=== PATIENT | male | born 1960 | race Caucasian/White ===

== ENCOUNTER 2023-06-21 12:26 | Inpatient (IN) | payer OTHER ==
[2023-06-21] VITALS (23 sets, daily range): BP systolic 117–186; BP diastolic 74–114
[~2023-06-21] VITALS: Ht 177.8 cm; Wt 61.4 kg
[~2023-06-21 12:26] MED LIST: ALBU90OI INH; ALPR1 PO; AMLO5 PO; ATOR10 PO; Acetaminophen650 M1 PO; Aspir 8181 MG PO; B-1100 M1 PO; CARV6.25 PO; CATAPRES0.2 M1 PO; CITALOPRAM HBR10 MG PO; COLCHICINE0.6 MG PO; Celexa20 MG PO; FOLI1 PO; HYDACE5 PO; Keflex500 MG PO; LACT PO; LISI5 PO; LOPE2C PO; MOMENI; MOXI400; Norco 5-325 Ta1 EACH PO; OXYACE5T PO; PROM25 PO; PROP10 PO; RXHYDACE PO; SILSUL1TC TOP; TELM40; [UNRECOGNIZED DRUG - REMARK]; [UNRECOGNIZED DRUG - REMARK]
[2023-06-21] MEDS ORDERED: Midazolam HCL 1 MG/ML 5MLVIAL IV ONE (12:35)
[2023-06-21 12:40] LABS: Chloride (POC) 90 mmol/L (98-108); Creatinine (POC) 4.9 mg/dL (0.8-1.3); Glucose (ISTAT POC) 78 mg/dL (70-99); Hemoglobin (POC) 11.6 g/dL (13.5-17.5); Potassium (POC) 4.5 mmol/L (3.5-5.5); Sodium (POC) 126 mmol/L (135-148); Total CO2 (POC) 34 mmol/L (21-32)
[2023-06-21] MEDS ORDERED: propofoL 100 ML IV SCH ×2 (12:45→15:15)
[2023-06-21 12:50] LABS: BASOPHILS ABSOLUTE AUTO 0.02 K/mm3 (0.00-0.23); BASOPHILS PERCENT AUTO 0 % (0-2); EOSINOPHILS PERCENT AUTO 0 % (0-6); Hematocrit 30.5 % (37.0-53.0); Hemoglobin 10.7 g/dL (13.5-17.5); IMMATURE GRAN ABSOLUTE AUTO 0.09 K/mm3 (0.00-0.10); IMMATURE GRAN PERCENT AUTO 1 % (0-1); LYMPHOCYTES ABSOLUTE AUTO 0.61 K/mm3 (0.84-5.20); LYMPHOCYTES PERCENT AUTO 4 % (21-46); MONOCYTES ABSOLUTE AUTO 0.82 K/mm3 (0.16-1.47); MONOCYTES PERCENT AUTO 5 % (4-13); Mean Corpuscular HGB 32.7 pg (26.0-34.0); Mean Corpuscular HGB Conc 35.1 g/dL (31.5-36.5); Mean Corpuscular Volume 93 fL (80-100); Mean Platelet Volume 11.1 fL (9.1-12.4); NEUTROPHILS ABSOLUTE AUTO 15.57 K/mm3 (1.96-9.15); NEUTROPHILS PERCENT AUTO 91 % (41-73); Platelet Count 385 K/mm3 (150-400); RDW Coefficient Variation 13.2 % (11.7-14.2); RDW Standard Deviation 45.1 fL (35.1-46.3); Red Blood Cell Count 3.27 M/mm3 (4.30-5.90); White Blood Cell Count 17.11 K/mm3 (4.00-11.30)
[2023-06-21 13:22] LABS: Base Excess Venous 11.2 mmol/L; Bicarbonate Venous 33.1 mmol/L (24.0-30.0); PCO2 Venous 54.2 mmHg (38-42); pH Blood Venous 7.43 (7.34-7.37)
[2023-06-21 13:29] LABS: Ethanol (Alcohol), Blood, Med <3 mg/dL
[2023-06-21 13:44] LABS: Alanine Aminotransfer (ALT/SGP 29 U/L (12-78); Albumin, Blood 2.8 g/dL (3.4-5.0); Albumin/Globulin Ratio 0.6 (0.8-1.8); Alk Phos 113 U/L (50-136); Anion Gap 12 mmol/L (3-11); Aspartate Aminotrans (AST/SGOT 48 U/L (12-37); Bilirubin, Total 1.3 mg/dL (0.1-1.0); Blood Urea Nitrogen 47 mg/dL (8-24); Bun/Creatinine Ratio 11.5 (12.0-20.0); CO2, Blood 32 mmol/L (21-32); Calcium, Blood 17.2 mg/dL (8.5-10.1); Chloride, Blood 91 mmol/L (98-108); Creatinine, Blood 4.07 mg/dL (0.60-1.20); Globulin, Blood 4.6 g/dL (2.2-4.0); Glomerular Filtration Rate 16 (60-); Glucose, Blood 84 mg/dL (70-99); Potassium, Blood 4.6 mmol/L (3.5-5.5); Sodium, Blood 130 mmol/L (136-145); Total Protein, Blood 7.4 g/dL (6.4-8.2)
[2023-06-21] MEDS ORDERED: NS 1,000 ML IV SCH ×3 (13:45→16:00)
[2023-06-21 14:25] LABS: U Amphetamine Screen Not Detected; U Barbituate Screen Not Detected; U Benzodiazapine Screen DETECTED; U Buprenorphine Screen Not Detected; U Cannabinoids Screen Not Detected; U Cocaine Screen Not Detected; U Methadone Screen Not Detected; U Methamphetamine Screen Not Detected; U Opiates Screen Not Detected; U Oxycodone Screen Not Detected; U Phencyclidine Screen Not Detected
[2023-06-21] MEDS ORDERED: FentaNYL Citrate 50 MCG/ML 2 ML Injection IV PRN (15:05)
[2023-06-21] MEDS ORDERED: Cetylpyridinium Chloride 1 EA MISC MT SCH (15:05)
[2023-06-21] MEDS ORDERED: Magnesium Sulf 2 GM/Water 50ML 50 ML IV STA (15:11)
[2023-06-21] MEDS ORDERED: Folic Acid 1 MG in NS 50 ML IV SCH (15:13)
[2023-06-21 15:24] LABS: Source, Urine Foley catheter
[2023-06-21 15:34] LABS: Appearance, Urine Cloudy (Clear); Bilirubin, Urine Neg (Neg); Blood, Urine 3+ (Neg); Color, Urine Yellow (P-Yellow); Glucose Qualitative, Urine Neg (Neg); Ketones, Urine 1+ (Neg); Leukocyte Esterase, Urine 1+ (Neg); Nitrite, Urine Neg (Neg); Protein, Urine 2+ (Neg); Urobilinogen, Urine NORM (Normal)
[2023-06-21 15:51] LABS: Hyaline Casts 0-2 /lpf (0-2)
[2023-06-21 15:52] LABS: Amorphous Mod (0-Heavy); Bacteria Few /hpf; Squamous Epithelial Cells Not Seen /hpf (Few)
[2023-06-21] MEDS ORDERED: Hydrogen Peroxide 1.5 % Solution MT SCH (16:00)
[2023-06-21] MEDS ORDERED: Heparin Sodium,Porcine 5,000 UNIT/0.5 ML SDV SC SCH (16:00)
[2023-06-21] MEDS ORDERED: Thiamine HCl 250 MG in NS 100 ML IV SCH (16:00)
[2023-06-21] MEDS ORDERED: LORazepam 2 MG/ML 1ML Injection ONE (16:29)
[2023-06-21] MEDS ORDERED: LORazepam 2 MG/ML 1ML Injection IV ONE (16:30)
[2023-06-21] MEDS ORDERED: NS 250 ML IV PRN (16:35)
[2023-06-21] MEDS ORDERED: NiCARdipine HCL 25 MG/10 ML (2.5MG/ML) IV ONE (16:50)
[2023-06-21] MEDS ORDERED: Calcitonin Salmon 200 IU/ML 2ML Vial SC SCH (17:00)
[2023-06-21] MEDS ORDERED: NiCARdipine HCL 50 MG in NS 250 ML IV SCH (17:00)
[2023-06-21] MEDS ORDERED: LORazepam 2 MG/ML 1ML Injection IV PRN ×3 (17:25)
--- NOTE | 2023-06-21 17:32 | NUR ---
ADMIT/SUMMARY PT ARRIVED TO ICU 7 VIA ER BED. PT ARRIVED INTUBATED AND SEDATED. PT TRANSFERED TO ICU BED WITH RT ASSISTANCE. PT VENT SETTINGS AC 16, TV 450, PEEP 5, FIO2 50%. PT WITH THICK ETT SECRETIONS WITH SUCTION. PT WITH STRONG COUGH AND GAG REFLEXES. PT INITALLY ARRIVED WITH SEVERE TREMORS THAT APPEARED SEIZURE LIKE, BUT WOULD INTERMITTENTLY BREAK. PT MED WITH ATIVAN PER EMAR. PT TREMORS SUBSIDED. PT WITHDRAWS EXTREMITIES TO NOXIOUS STIMULI, BUT DOES NOT FOLLOW ANY COMMANDS. PT SEDATED WITH PROPOFOL AT 50 MCG/KG/MIN AT THIS TIME. NS BOLUS INFUSING AND NS TKO. PT WITH SBP 170-190'S AT THIS TIME. NICARDIPINE GTT STARTED AT THIS TIME. OGT IN PLACE, CLAMPED. JARQUIN TEMP PROBE IN PLACE WITH YELLOW URINE OUTPUT NOTED. SBW RESTRAINTS IN PLACE. WILL CONTINUE TO MONITOR AND REPORT OFF TO ONCOMING RN.
[2023-06-21 19:49] LABS: Magnesium, Blood 1.6 mg/dL (1.6-2.4)
[2023-06-21 19:55] LABS: Albumin, Blood 2.5 g/dL (3.4-5.0); Albumin/Globulin Ratio 0.6 (0.8-1.8); Bun/Creatinine Ratio 12.5 (12.0-20.0); Calcium, Blood 15.4 mg/dL (8.5-10.1); Creatinine, Blood 3.92 mg/dL (0.60-1.20); Potassium, Blood 4.4 mmol/L (3.5-5.5); Total Protein, Blood 6.5 g/dL (6.4-8.2)
[2023-06-21] MEDS ORDERED: Mag Sulfate 1 GM/D5% 100ML 100 ML IV ONE (20:10)
[2023-06-21] MEDS ORDERED: Dextrose 50% 50 ML Syringe IV ONE (20:10)
[2023-06-21] MEDS ORDERED: D5W-1/2NS 1,000 ML IV SCH (20:10)
[2023-06-21] MEDS ORDERED: Dextrose 10% 250 ML IV ONE (20:20)
--- NOTE | 2023-06-21 20:47 | NUR ---
ASSUMED CARE PT INTUBATED AND SEDATED W/ NICARDIPINE AND PROPOFOL INFUSING PER EMAR. DR MAYORGA CALLED D/T CRITICAL CALCIUM VALUES + OTHER RENAL PANEL VALUES W/ ORDERS FOR D5 1/2NS @ 200MLS/HR, ADDITIONAL LABS, AND 1G MAGNESIUM IVPB. D10 250ML BOLUS INITIALLY ORDERED, BUT DC'D D/T NEXT HOUR CBG AT 92 PER MUKESH.
--- NOTE | 2023-06-21 22:32 | NUR ---
UPDATE DISCOVERED LAC PERIPHERAL IV WAS INFILTRATED (D5 1/2NS INFUSING). INFUSION WAS STOPPED, CONSULTED PHARMACY W/ RECOMMENDATION FOR WARM COMPRESS AND ELEVATION. SITE IS APPROX 2-3INCHES ACROSS W/ TEMPS UNCHANGED FROM SURROUNDING TISSUE. NICARDIPINE INFUSION ON SB D/T LIMITED ACCESS W/ SBP MAINTAINING <160. POWERGLADE CURRENTLY BEING PLACED AT TIME OF THIS NOTE.
[2023-06-21 23:23] LABS: Magnesium, Blood 2.2 mg/dL (1.6-2.4)
[2023-06-21 23:54] LABS: Base Excess Venous 6.9 mmol/L; Bicarbonate Venous 29.5 mmol/L (24.0-30.0); PCO2 Venous 45.2 mmHg (38-42); pH Blood Venous 7.45 (7.34-7.37)
[2023-06-21 23:59] LABS: Bun/Creatinine Ratio 12.3 (12.0-20.0); Creatinine, Blood 3.73 mg/dL (0.60-1.20); Phosphorus, Blood 2.9 mg/dL (2.5-4.9); Potassium, Blood 3.8 mmol/L (3.5-5.5)
[2023-06-22] VITALS (69 sets, daily range): BP systolic 107–177; BP diastolic 73–104
[2023-06-22 03:42] LABS: BASOPHILS ABSOLUTE AUTO 0.03 K/mm3 (0.00-0.23); BASOPHILS PERCENT AUTO 0 % (0-2); EOSINOPHILS ABSOLUTE AUTO 0.07 K/mm3 (0.00-0.68); EOSINOPHILS PERCENT AUTO 1 % (0-6); Hemoglobin 9.1 g/dL (13.5-17.5); IMMATURE GRAN ABSOLUTE AUTO 0.05 K/mm3 (0.00-0.10); IMMATURE GRAN PERCENT AUTO 0 % (0-1); LYMPHOCYTES ABSOLUTE AUTO 0.94 K/mm3 (0.84-5.20); LYMPHOCYTES PERCENT AUTO 8 % (21-46); MONOCYTES ABSOLUTE AUTO 0.96 K/mm3 (0.16-1.47); MONOCYTES PERCENT AUTO 8 % (4-13); Mean Corpuscular HGB 32.4 pg (26.0-34.0); Mean Corpuscular HGB Conc 33.7 g/dL (31.5-36.5); Mean Corpuscular Volume 96 fL (80-100); Mean Platelet Volume 11.4 fL (9.1-12.4); NEUTROPHILS ABSOLUTE AUTO 9.66 K/mm3 (1.96-9.15); NEUTROPHILS PERCENT AUTO 83 % (41-73); Platelet Count 308 K/mm3 (150-400); RDW Coefficient Variation 13.7 % (11.7-14.2); RDW Standard Deviation 48.4 fL (35.1-46.3); Red Blood Cell Count 2.81 M/mm3 (4.30-5.90); White Blood Cell Count 11.71 K/mm3 (4.00-11.30)
[2023-06-22 04:07] LABS: Magnesium, Blood 1.9 mg/dL (1.6-2.4)
[2023-06-22 04:28] LABS: Albumin, Blood 2.1 g/dL (3.4-5.0); Albumin/Globulin Ratio 0.6 (0.8-1.8); Bilirubin, Total 0.5 mg/dL (0.1-1.0); Bun/Creatinine Ratio 12.5 (12.0-20.0); Calcium, Blood 13.2 mg/dL (8.5-10.1); Creatinine, Blood 3.6 mg/dL (0.60-1.20); Globulin, Blood 3.6 g/dL (2.2-4.0); Phosphorus, Blood 2.3 mg/dL (2.5-4.9); Potassium, Blood 3.4 mmol/L (3.5-5.5); Total Protein, Blood 5.7 g/dL (6.4-8.2)
[2023-06-22 05:19] LABS: PO2 Arterial 78.3 mmHg (80-100); pH Blood Arterial 7.46 (7.35-7.45)
[2023-06-22] MEDS ORDERED: Pantoprazole Sodium 40 MG Injection IV SCH (06:00)
--- NOTE | 2023-06-22 06:26 | NUR ---
SHIFT SUMMARY PT REMAINS INTUBATED AND SEDATED. PROPOFOL AND NICARDIPINE CONTINUES TO INFUSE. SBP <160; RATE IN THE 80'S; SPO2 >92%. 12/450/5/30% VENT SETTINGS. AT START OF NIGHT PT ONLY WITHDREW FROM NOXIOUS STIMULI, BUT THIS AM PT OPENS EYES BRIEFLY UPON REQUEST, DOES NOT FOLLOW ANY OTHER COMMAND. JARQUIN CATHETER PATENT AND DRAINING TO GRAVITY. NO ACUTE EVENTS OVERNIGHT. DR MAYORGA AT BESIDE EARLIER IN THE NIGHT W/ NO NEW ORDERS.
[2023-06-22] MEDS ORDERED: Potassium Chl 20MEQ/Water100ML 100 ML IV STA (07:30)
--- NOTE | 2023-06-22 09:11 | NUR ---
ASSUMED CARE BEDSIDE REPORT FROM SYLWIA WILLOUGHBY AT 0700. PT INTUBATED AND SEDATED. VENT SETTINGS AC/VC 12/450/5/30%. LUNGS CLEAR, DIM IN BASES. OCCASIONAL COUGH. MODERATE, THICK SECRETIONS FROM ETT, MODERATE ORAL SECRETIONS. PROPOFOL GTT FOR SEDATION, RASS -4. PT GRIMACES c PAINFUL STIMULI, DOES NOT WITHDRAW EXT TO PAIN. DOES NOT FOLLOW COMMANDS. +COUGH/GAG, NO SWALLOW REFLEX. SR, RATE 70'S. NICARDIPINE PLACED ON STANDBY, GOAL SBP <160. D5 1/2 NS CONTINUES. ABD ROUND, SOFT, NON TENDER. BT X 4. OGT CLAMPED. JARQUIN PATENT, DRAINING CLEAR YELLOW URINE TO GRAVITY. WILL CONTINUE PLAN OF CARE.
[2023-06-22 13:03] LABS: BASOPHILS ABSOLUTE AUTO 0.02 K/mm3 (0.00-0.23); BASOPHILS PERCENT AUTO 0 % (0-2); EOSINOPHILS ABSOLUTE AUTO 0.08 K/mm3 (0.00-0.68); EOSINOPHILS PERCENT AUTO 1 % (0-6); Hematocrit 26.2 % (37.0-53.0); Hemoglobin 9.1 g/dL (13.5-17.5); IMMATURE GRAN ABSOLUTE AUTO 0.07 K/mm3 (0.00-0.10); IMMATURE GRAN PERCENT AUTO 1 % (0-1); LYMPHOCYTES PERCENT AUTO 9 % (21-46); MONOCYTES ABSOLUTE AUTO 0.92 K/mm3 (0.16-1.47); MONOCYTES PERCENT AUTO 8 % (4-13); Mean Corpuscular HGB 33.6 pg (26.0-34.0); Mean Corpuscular HGB Conc 34.7 g/dL (31.5-36.5); Mean Corpuscular Volume 97 fL (80-100); Mean Platelet Volume 11.3 fL (9.1-12.4); NEUTROPHILS ABSOLUTE AUTO 9.49 K/mm3 (1.96-9.15); NEUTROPHILS PERCENT AUTO 82 % (41-73); Platelet Count 311 K/mm3 (150-400); RDW Coefficient Variation 14.2 % (11.7-14.2); RDW Standard Deviation 49.6 fL (35.1-46.3); Red Blood Cell Count 2.71 M/mm3 (4.30-5.90); White Blood Cell Count 11.58 K/mm3 (4.00-11.30)
[2023-06-22 13:58] LABS: Percent Saturation 8.5 % (20.0-50.0)
--- NOTE | 2023-06-22 17:57 | NUR ---
SHIFT SUMMARY PT REMAINS INTUBATED AND SEDATED. VENT SETTINGS AC/VC 12/450/5/30%. LUNGS CLEAR. MODERATE AMOUNT OF THICK YELLOW SECRETIONS FROM ETT, LARGE AMOUNT OF CLEAR ORAL SECRETIONS. PROPOFOL FOR SEDATION, RASS -4. CPOT 0. PT OPENS EYES TO VERBAL STIMULI, DOES NOT FOLLOW COMMANDS OR WITHDRAW EXT TO PAIN. +COUGH/GAG/SWALLOW. SR, RATE 70-80'S. NICARDIPINE REMAINS OFF, SBP RANGE FROM 120-170'S. OGT CLAMPED. D5 1/2 NS INFUSING AT 200 ML/HR. JARQUIN PATENT, DRAINED 2500 ML CLEAR YELLOW URINE. CALLED AND UPDATED. WILL CONTINUE PLAN OF CARE UNTIL REPORT TO ONCOMING NURSE.
--- NOTE | 2023-06-22 20:26 | NUR ---
ASSUMED CARE OF PT AT 1900. REPORT RECEIVED AT BEDSIDE. PT PRESENTS IN BED. INTUBATED. AC 12, Tv 450, FIO2 30 PERCENT, PEEP 5. PT'S BLOOD PRESSURES ELEVATED, AND PT VERY RESTLESS. INCREASED PROPOFOL TO 25 MCG'S/KG/MIN FROM 20. 2 MG ATIVAN ADMINISTERED FOR ADJUNCT. HAVE SUCTIONED PT FOR LARGE AMOUNT OF LIGHT YELLOW SECRETIONS. WILL REVIEW CHART AND PLAN OF CARE.
[2023-06-22] MEDS ORDERED: Potassium Phos/Sodium Phos 250 MG PACK PO SCH (21:00)
[2023-06-23] VITALS (66 sets, daily range): BP systolic 112–190; BP diastolic 75–144
--- NOTE | 2023-06-23 03:27 | NUR ---
PT HAS FULL BEDBATH DONE. TOLERATES THIS FAIR. HAVE BEEN ABLE TO SUCTION COPIOUS AMOUNTS OF LIGHT YELLOW SECRETIONS FROM ETT. BLOOD PRESSURES HAVE RANGED FROM 150'S SYSTOLIC TO 170'S. WILL CONTINUE TO MONITOR PT.
[2023-06-23 04:12] LABS: BASOPHILS ABSOLUTE AUTO 0.04 K/mm3 (0.00-0.23); BASOPHILS PERCENT AUTO 0 % (0-2); EOSINOPHILS ABSOLUTE AUTO 0.19 K/mm3 (0.00-0.68); EOSINOPHILS PERCENT AUTO 2 % (0-6); Hematocrit 25.6 % (37.0-53.0); Hemoglobin 8.6 g/dL (13.5-17.5); IMMATURE GRAN ABSOLUTE AUTO 0.06 K/mm3 (0.00-0.10); IMMATURE GRAN PERCENT AUTO 1 % (0-1); LYMPHOCYTES ABSOLUTE AUTO 1.17 K/mm3 (0.84-5.20); LYMPHOCYTES PERCENT AUTO 11 % (21-46); MONOCYTES ABSOLUTE AUTO 0.84 K/mm3 (0.16-1.47); MONOCYTES PERCENT AUTO 8 % (4-13); Mean Corpuscular HGB 33.3 pg (26.0-34.0); Mean Corpuscular HGB Conc 33.6 g/dL (31.5-36.5); Mean Corpuscular Volume 99 fL (80-100); Mean Platelet Volume 11.4 fL (9.1-12.4); NEUTROPHILS PERCENT AUTO 78 % (41-73); Platelet Count 278 K/mm3 (150-400); RDW Coefficient Variation 14.3 % (11.7-14.2); RDW Standard Deviation 51.6 fL (35.1-46.3); Red Blood Cell Count 2.58 M/mm3 (4.30-5.90)
[2023-06-23] MEDS ORDERED: HydrALAZINE HCl 20 MG / ML 1ML Vial IV PRN (04:40)
[2023-06-23 05:31] LABS: Albumin, Blood 1.9 g/dL (3.4-5.0); Albumin/Globulin Ratio 0.5 (0.8-1.8); Bilirubin, Total 0.2 mg/dL (0.1-1.0); Bun/Creatinine Ratio 10.7 (12.0-20.0); Creatinine, Blood 2.72 mg/dL (0.60-1.20); Globulin, Blood 3.8 g/dL (2.2-4.0); Potassium, Blood 3.3 mmol/L (3.5-5.5); Total Protein, Blood 5.7 g/dL (6.4-8.2)
[2023-06-23] MEDS ORDERED: Potassium Chloride 40 MEQ in NS 250 ML IV STA (06:20)
--- NOTE | 2023-06-23 06:38 | NUR ---
CALL MADE TO DR CASE WHEREAS ORDER RECEIVED FOR HYDRALAZINE. THIS HAS BEEN ADMINISTERED. LAST BP WAS DONE JUST POST SUCTIONING. WILL AWAIT NEXT BLOOD PRESSURE TO ASSESS AFFECTIVENESS. PT HAS BEEN MEDICATED SEVERAL TIMES WITH ATIVAN FOR INCREASED RESTLESSNESS. WILL CONTINUE TO MONITOR PT, AND WILL REPORT OFF TO ONCOMING RN.
[2023-06-23] MEDS ORDERED: ChlordiazePOXIDE 25 MG Cap PT PRN (08:55)
[2023-06-23] MEDS ORDERED: Carvedilol 6.25 MG Tab PT SCH (09:00)
[2023-06-23] MEDS ORDERED: AmLODIPine Besylate 5 MG Tab PT SCH (09:00)
[2023-06-23] MEDS ORDERED: ChlordiazePOXIDE 25 MG Cap PO SCH (12:00)
[2023-06-23] MEDS ORDERED: Thiamine HCl 100 MG Tab PT SCH (14:00)
[2023-06-23] MEDS ORDERED: Magnesium Hydroxide Conc 10 ML UDC PT PRN (15:55)
[2023-06-23] MEDS ORDERED: Docusate Sodium 100 MG UDC PT PRN (15:55)
[2023-06-23] MEDS ORDERED: Bisacodyl 10 MG Supp PR PRN (15:55)
[2023-06-23] MEDS ORDERED: D5W-1/2NS 1,000 ML IV SCH (17:30)
--- NOTE | 2023-06-23 18:44 | NUR ---
SHIFT SUMMARY. PT HAS BEEN SEDATED AND INTUBATED T/O DAY. VENT SETTINGS HAVE BEEN 12/450/5/30% AC/VC W/ PT MAINTAINING SPO2 >96%. PT COUGHS WHEN REPOSITIONED AND WITHDRAWAL SYMPTOMS WORSEN. COUGH IS PRODUCTIVE W/ GREEN, YELLOW, AND WHITE SPUTUM. LUNG SOUNDS CTA BUT DIMINISHED IN BASES. PT IS NOT ORIENTED, BUT WAKES TO VERBAL STIMULI. PT WAS ONLY ABLE TO FOLLOW COMMANDS AND SQUEEZE HANDS TWICE AFTER 1200. HE NODDED AND SHOOK HEAD IN RESPONSE TO QUESTIONS. HE WAS UNABLE TO MOVE FEET. PUPILS ARE SLUGGISH AND 2MM. WITHDRAWAL WAS WELL MANAGED WITH ATIVAN AND LIBRIUM. PROPOFOL WAS STOPPED FROM 30MCG/KG/HR FOR INITIAL ATTEMPT AT SBT, BUT QUICKLY RESTARTED TO 20MCG/KG/HR AFTER PT RASS SCORE INCREASED TO +2, STARTED BUCKING THE VENT, WAS DIAPHORETIC AND VERY DISTRESSED. GI SOUNDS HAVE BEEN HYPERACTIVE. NO BM DURING SHIFT. TF STARTED AT 30ML/HR AT GOAL WITH 30ML FLUSH Q4 HR. TEMP JARQUIN PATIENT AND DRAINING TO GRAVITY W/ UROMETER. D5 W 1/2 NS RUNNING AT 100ML/HR. PT EXPERIENCING DROP FOOD IN L-FOOT. FEET BRACED BILATERALLY AND PT REPOSITIONED FOR COMFORT. HOB ELEVATED TO 30'. PT RESTING COMFORTABLY.
--- NOTE | 2023-06-23 19:00 | NUR ---
ASSUMED CARE ASSUMED CARE OF PATIENT. REMAINS INTUBATED- AC/VC 12/450/5/30%. SEDATED WITH PROPOFOL AT 20MCG/KG/MIN. OPENS EYES TO STIMULI. FOLLOWS SIMPLE COMMANDS TO SQUEEZE HANDS AND WIGGLE TOES. BILATERAL SOFT WRIST RESTRAINTS IN PLACE TO PREVENT SELF-EXTUBATION. MONITOR SHOWS NSR, RATE 80s. BP STABLE. OG WITH PIVOT 1.5 AT GOAL RATE OF 30MLS/HR. JARQUIN PATENT AND DRAINING TO GRAVITY. D5 1/2 NS INFUSING AT 100MLS/HR PER ORDER. SEE SHIFT ASSESSMENT FOR FULL ASSESSMEMT.
[2023-06-24] VITALS (47 sets, daily range): BP systolic 96–151; BP diastolic 66–96
[2023-06-24 04:33] LABS: BASOPHILS ABSOLUTE AUTO 0.05 K/mm3 (0.00-0.23); BASOPHILS PERCENT AUTO 1 % (0-2); EOSINOPHILS ABSOLUTE AUTO 0.38 K/mm3 (0.00-0.68); EOSINOPHILS PERCENT AUTO 5 % (0-6); Hematocrit 24.3 % (37.0-53.0); Hemoglobin 8.1 g/dL (13.5-17.5); IMMATURE GRAN ABSOLUTE AUTO 0.05 K/mm3 (0.00-0.10); IMMATURE GRAN PERCENT AUTO 1 % (0-1); LYMPHOCYTES ABSOLUTE AUTO 1.37 K/mm3 (0.84-5.20); LYMPHOCYTES PERCENT AUTO 17 % (21-46); MONOCYTES ABSOLUTE AUTO 0.85 K/mm3 (0.16-1.47); MONOCYTES PERCENT AUTO 11 % (4-13); Mean Corpuscular HGB 33.2 pg (26.0-34.0); Mean Corpuscular HGB Conc 33.3 g/dL (31.5-36.5); Mean Corpuscular Volume 100 fL (80-100); Mean Platelet Volume 11.5 fL (9.1-12.4); NEUTROPHILS ABSOLUTE AUTO 5.42 K/mm3 (1.96-9.15); NEUTROPHILS PERCENT AUTO 67 % (41-73); Platelet Count 270 K/mm3 (150-400); RDW Coefficient Variation 14.4 % (11.7-14.2); RDW Standard Deviation 52.2 fL (35.1-46.3); Red Blood Cell Count 2.44 M/mm3 (4.30-5.90); White Blood Cell Count 8.12 K/mm3 (4.00-11.30)
[2023-06-24 05:04] LABS: Albumin, Blood 1.8 g/dL (3.4-5.0); Albumin/Globulin Ratio 0.5 (0.8-1.8); Bilirubin, Total 0.2 mg/dL (0.1-1.0); Bun/Creatinine Ratio 10.5 (12.0-20.0); Calcium, Blood 9.6 mg/dL (8.5-10.1); Globulin, Blood 3.8 g/dL (2.2-4.0); Magnesium, Blood 0.9 mg/dL (1.6-2.4); Phosphorus, Blood 2.4 mg/dL (2.5-4.9); Potassium, Blood 3.5 mmol/L (3.5-5.5); Total Protein, Blood 5.6 g/dL (6.4-8.2)
[2023-06-24] MEDS ORDERED: Mag Sulfate 1 GM/D5% 100ML 100 ML IV ONE (06:00)
[2023-06-24] MEDS ORDERED: Lansoprazole 15 MG TAB.RAP.DR PT SCH (06:00)
[2023-06-24] MEDS ORDERED: Potassium Phosphate Dibasic 20 MM in Dextrose 5% 500 ML IV ONE (06:10)
[2023-06-24] MEDS ORDERED: Magnesium Citrate 300 ML BTL PO ONE (06:10)
--- NOTE | 2023-06-24 06:18 | NUR ---
SHIFT SUMMARY NO ACUTE CHANGES DURING SHIFT. REMAINS INTUBATED- AC/VC 12/450/5/30%. SEDATED WITH PROPOFOL BETWEEN 20-30MCG/KG/MIN. NOW INFUSING AT 30MCG/KG/MIN. MEDICATED WITH ATIVAN 2MG IV X 2 DOSES SEDATION ADJUNCT. LIBRIUM 25MG GIVEN Q6H PER ORDER. HR 70s-80s, NSR. BP STABLE- SBP OCCASIONALLY 150s. TMAX 99.3F. OG WITH PIVOT 1.5 AT GOAL RATE OF 30MLs/HR. 30ML H20 FLUSH Q4H. PASSING FLATUS- NO BM. JARQUIN PATENT AND DRAINING TO GRAVITY. D5 1/2 NS INFUSING AT 100MLs/HR. WILL REPORT TO ONCOMING RN WHEN AVAILABLE.
[2023-06-24] MEDS ORDERED: Mag Sulfate 1 GM/D5% 100ML 100 ML IV STA (07:17)
[2023-06-24 08:01] LABS: VITAMIN D,1,25-DIHYDROXY 11.1 pg/mL (19.9-79.3)
[2023-06-24] MEDS ORDERED: Folic Acid 1 MG TAB PT SCH (09:00)
[2023-06-24] MEDS ORDERED: Multivitamins-Minerals Liquid 15 ML Oral Syringe PT SCH (09:00)
[2023-06-24] MEDS ORDERED: Magnesium Sulf 2 GM/Water 50ML 50 ML IV ONE ×2 (10:55→15:15)
--- NOTE | 2023-06-24 17:45 | NUR ---
SHIFT SUMMARY NO ACUTE CHANGES THIS SHIFT. PT REMAINS INTUBATED AND SEDATED. VENT SETTINGS REMAIN AC 12, TV 450, PEEP 5, FIO2 30%. PT WITH THICK, YUNG ETT SECRETIONS THIS SHIFT. ORAL SECRETIONS HAVE DECREASED THROUGHOUT THE SHIFT. PT LIGHTLY SEDATED WITH PROPOFOL AT 30 MCG/KG/MIN. PT IS ABLE TO OPEN EYES SPONTANEOUSLY AND SQUEEZE HANDS UPON COMMAND. PT WITH PERIODS OF RESTLESSNESS AND TREMORS WITH MOVEMENT. PT MED WITH ATIVAN PER EMAR. OGT IN PLACE WITH TF INFUSING AT GOAL RATE. PG TO ROSARIO C/D/I. NS INFUSING TKO. JARQUIN TEMP PROBE REMAINS IN PLACE WITH CLEAR YELLOW URINE OUTPUT NOTED. SBW RESTRAINTS IN PLACE. VITAL SIGNS STABLE. WILL CONTINUE TO MONITOR AND REPORT OFF TO ONCOMING RN.
--- NOTE | 2023-06-24 19:00 | NUR ---
ASSUMED CARE ASSUMED CARE OF PATIENT. REMAINS INTUBATED- AC/VC 12/450/5/30%. SEDATED WITH PROPOFOL AT 30MCG/KG/MIN. OPENS EYES TO STIMULI. FOLLOWS SIMPLE COMMANDS TO SQUEEZE HANDS AND WIGGLE TOES. BILATERAL SOFT WRIST RESTRAINTS IN PLACE TO PREVENT SELF-EXTUBATION. MONITOR SHOWS NSR, RATE 80s. BP STABLE. OG WITH PIVOT 1.5 AT GOAL RATE OF 30MLS/HR. JARQUIN PATENT AND DRAINING TO GRAVITY. SEE SHIFT ASSESSMENT FOR FULL ASSESSMEMT.
[2023-06-25] VITALS (32 sets, daily range): BP systolic 98–173; BP diastolic 70–124
[2023-06-25 04:21] LABS: BASOPHILS ABSOLUTE AUTO 0.05 K/mm3 (0.00-0.23); BASOPHILS PERCENT AUTO 1 % (0-2); EOSINOPHILS ABSOLUTE AUTO 0.59 K/mm3 (0.00-0.68); EOSINOPHILS PERCENT AUTO 6 % (0-6); Hematocrit 25.4 % (37.0-53.0); Hemoglobin 8.5 g/dL (13.5-17.5); IMMATURE GRAN ABSOLUTE AUTO 0.05 K/mm3 (0.00-0.10); IMMATURE GRAN PERCENT AUTO 1 % (0-1); LYMPHOCYTES ABSOLUTE AUTO 1.58 K/mm3 (0.84-5.20); LYMPHOCYTES PERCENT AUTO 17 % (21-46); MONOCYTES ABSOLUTE AUTO 0.97 K/mm3 (0.16-1.47); MONOCYTES PERCENT AUTO 11 % (4-13); Mean Corpuscular HGB 33.1 pg (26.0-34.0); Mean Corpuscular HGB Conc 33.5 g/dL (31.5-36.5); Mean Corpuscular Volume 99 fL (80-100); NEUTROPHILS ABSOLUTE AUTO 6.04 K/mm3 (1.96-9.15); NEUTROPHILS PERCENT AUTO 65 % (41-73); Platelet Count 287 K/mm3 (150-400); RDW Coefficient Variation 14.6 % (11.7-14.2); RDW Standard Deviation 53.1 fL (35.1-46.3); Red Blood Cell Count 2.57 M/mm3 (4.30-5.90); White Blood Cell Count 9.28 K/mm3 (4.00-11.30)
[2023-06-25 04:38] LABS: Albumin, Blood 1.9 g/dL (3.4-5.0); Albumin/Globulin Ratio 0.5 (0.8-1.8); Bilirubin, Total 0.2 mg/dL (0.1-1.0); Bun/Creatinine Ratio 13.9 (12.0-20.0); Calcium, Blood 9.5 mg/dL (8.5-10.1); Creatinine, Blood 1.73 mg/dL (0.60-1.20); Magnesium, Blood 1.8 mg/dL (1.6-2.4); Phosphorus, Blood 2.4 mg/dL (2.5-4.9); Total Protein, Blood 5.9 g/dL (6.4-8.2)
--- NOTE | 2023-06-25 05:55 | NUR ---
SHIFT SUMMARY NO ACUTE CHANGES DURING SHIFT. REMAINS INTUBATED- AC/VC 12/450/5/30%. SEDATED WITH PROPOFOL BETWEEN 30-40MCG/KG/MIN. NOW INFUSING AT 30MCG/KG/MIN. MEDICATED WITH ATIVAN 2MG IV X 2 DOSES SEDATION ADJUNCT. BILATERAL SOFT WRIST RESTRAINTS IN PLACE TO PREVENT SELF-EXTUBATION. FOLLOWS SIMPLE COMMANDS AND MOVES ALL EXTREMITIES WEAKLY. OCCASIONAL TREMORS NOTED. HR 70s-80s, NSR. BP STABLE. TMAX 99.2F. OG WITH PIVOT 1.5 AT GOAL RATE OF 30MLs/HR. 30ML H20 FLUSH Q4H. PASSING FLATUS- NO BM. JARQUIN PATENT AND DRAINING TO GRAVITY. WILL REPORT TO ONCOMING RN WHEN AVAILABLE.
--- NOTE | 2023-06-25 18:28 | NUR ---
SUMMARY PT EXTUBATED TODAY AT 1135 TO 3L NC. NOW IS ON RA. PT IS CONFUSED, STATES YEAR 1978. CONSTANTLY MOVING IN BED AND PICKING AT LINES. ATIVAN GIVEN 3X FOR CIWA 10-12. STILL TREMULOUS. SOMETIMES REFUSES CARE AND IS DIFFICULT TO REDIRECT, BUT SOMETIMES WILL AGREE TO CARE IF REAPPROACHED A LITTLE LATER. NPO FOR NOW AND PT DECLINED TO TRY WATER. NO OTHER CHANGES THIS SHIFT.
--- NOTE | 2023-06-25 19:40 | NUR ---
ASSUMED CARE OF PT AT 1900 PT RESTING IN BED, WITH BOTH LETS HANGING OFF END OF BED. APPEARS UNCOMFORTABLE. THIS RN ASKS PT MULTIPLE TIMES IF SHE CAN ASSIST PT BACK TO POSITION OF COMFORT/SAFETY AND PT STS NO. PT CORRECTLY STATES HIS NAME WHEN ASKED. PT ASKED WHAT THE DATE IS, STS "ITS June". PT ASKED WHERE HE IS, STS "[place]". [facility] TECH ENTERS ROOM AND ASKED PT IF HE CAN REPOSITION HIM, PT IMMEDIATELY STS "YES". PT ON CONTINUOUS LIVESTOCK SHOWMAN, RATE OF 98 OBSERVED, SINUS. SATS ARE 99% ON RA. JARQUIN CATHETER W/ TEMP PROBE PRESENT AND DRAINING TO GRAVITY. CARE CONTINUES.
[2023-06-26] VITALS (18 sets, daily range): BP systolic 152–177; BP diastolic 87–108
[2023-06-26 01:36] LABS: ALBUMIN 2.26 g/dL (3.75-5.01); ALPHA 1 GLOBULIN 0.52 g/dL (0.19-0.46); ALPHA 2 GLOBULIN 0.95 g/dL (0.48-1.05); BETA GLOBULIN 0.65 g/dL (0.48-1.10); GAMMA 0.92 g/dL (0.62-1.51); IMMUNOFIXATION IFE Done; IMMUNOGLOBULIN A 208 mg/dL (68-408); IMMUNOGLOBULIN G 1023 mg/dL (768-1632); IMMUNOGLOBULIN M 86 mg/dL (35-263); KAPPA QNT FREE LIGHT CHAINS 58.86 mg/L (3.30-19.40); KAPPA/LAMBDA FLC RATIO 1.45 (0.26-1.65); TOTAL PROTEIN, SERUM 5.3 g/dL (6.3-8.2)
[2023-06-26 05:18] LABS: Hematocrit 25.1 % (37.0-53.0); Hemoglobin 8.4 g/dL (13.5-17.5); Mean Corpuscular HGB 32.8 pg (26.0-34.0); Mean Corpuscular HGB Conc 33.5 g/dL (31.5-36.5); Mean Corpuscular Volume 98 fL (80-100); Mean Platelet Volume 10.9 fL (9.1-12.4); Platelet Count 304 K/mm3 (150-400); RDW Coefficient Variation 14.3 % (11.7-14.2); RDW Standard Deviation 51.3 fL (35.1-46.3); Red Blood Cell Count 2.56 M/mm3 (4.30-5.90); White Blood Cell Count 7.83 K/mm3 (4.00-11.30)
[2023-06-26 05:49] LABS: Bun/Creatinine Ratio 13.9 (12.0-20.0); Calcium, Blood 9.6 mg/dL (8.5-10.1); Creatinine, Blood 1.44 mg/dL (0.60-1.20); Magnesium, Blood 1.3 mg/dL (1.6-2.4); Phosphorus, Blood 1.9 mg/dL (2.5-4.9); Potassium, Blood 3.6 mmol/L (3.5-5.5)
--- NOTE | 2023-06-26 06:17 | NUR ---
END OF SHIFT SUMMARY NO ACUTE EVENTS OVERNIGHT. PT SUCCESSFULLY TOLERATED ICE CHIPS AND SMALL SIPS OF WATER DURING SHIFT. WAS ABLE TO TAKE PO MEDICATION THIS AM WITHOUT INCIDENT. PT REMAINED CONFUSED DURING SHIFT. O2 SATS ARE 99% ON ROOM AIR, LUNGS CLEAR T/O. PT IN NSR, RATE IN THE 80S. JARQUIN CATH PATENT AND DRAINING TO GRAVITY. WILL REPORT TO ONCOMING RN WHEN AVAILABLE. CARE CONTINUES.
[2023-06-26] MEDS ORDERED: Potassium Phosphate Dibasic 20 MM in Dextrose 5% 500 ML IV ONE (06:30)
[2023-06-26] MEDS ORDERED: Mag Sulfate 1 GM/D5% 100ML 100 ML IV ONE (06:30)
[2023-06-26] MEDS ORDERED: Mag Sulfate 1 GM/D5% 100ML 100 ML IV STA (07:28)
[2023-06-26] MEDS ORDERED: AmLODIPine Besylate 5 MG Tab PO ONE (09:25)
[2023-06-26] MEDS ORDERED: Magnesium Sulf 2 GM/Water 50ML 50 ML IV ONE (11:30)
[2023-06-26 11:54] LABS: CK TOTAL 34 U/L (39-308); CK-BB 0 % (0-0); CK-MACRO TYPE I 0 % (0-0); CK-MACRO TYPE II 0 % (0-0); CK-MB 0 % (0-4); CK-MM 100 % (96-100)
[2023-06-26] MEDS ORDERED: ChlordiazePOXIDE 25 MG Cap PO SCH (12:00)
--- NOTE | 2023-06-26 14:40 | NUR ---
SUMMARY PT COOPERATIVE WITH CARE, GREETS STAFF WITH A SMILE. FOLLOWS COMMANDS. CONFUSED CONVERSATION MOST OF THE TIME. CIWA 8-10. LIBRIUM STARTED AND ATIVAN GIVEN ONCE. CONSTANTLY FIDDLING WITH LINES, CORDS, AND BED BUT NOT INTENTIONALLY PULLING ANYTHING OFF. MOVES SELF IN BED CONSTANTLY BUT NOT ATTEMPTING OOB. MAG REPLACED WITH 4 GMS IV AND KPHOS COMPLETE. CHANGED TO PCU STATUS AND BEING TRANSFERED TO PCU 10 VIA BED.
--- NOTE | 2023-06-26 17:37 | NUR ---
END OF SHIFT SUMMARY ASSUMED CARE AT 1545, TRANSFER FROM ICU. REPORT FROM GUS. PT ORIENTED TO SELF ONLY, PLEASANT, MAKES NEEDS KNOWN BY CALLING OUT, BUT NOT USING CALL LIGHT. REMOVED JARQUIN CATHETER, PT USING URINAL AND VOIDING. CIWA BETWEEN 3-10, MEDICATED PER MAR. WILL CONTINUE TO MONITOR AND REPORT TO ONCOMING NURSE.
[2023-06-26] MEDS ORDERED: Magnesium Oxide 400 MG Tab PO SCH (21:00)
[2023-06-27 01:13] LABS: PTHRP BY LC-MS/MS,PLASMA 5.4 pmol/L (0.0-2.3)
[2023-06-27 03:19] VITALS: BP 119/84
--- NOTE | 2023-06-27 04:50 | NUR ---
ASSUMED CARE OF PT AT 1900. PT CONFUSED AND FORGETFUL THROUGHOUT SHIFT. ORIENTED TO SELF ONLY. VISUAL HALLUCINATIONS NOTED. PT TALKING TO PEOPLE WHO ARE NOT THERE AND REPORTS SEEING ANIMALS IN HIS ROOM. PAIN TREATED PER ORDERS OVERNIGHT. SR - ST ON TELE, BP STABLE. AFEBRILE. MAINTAINS SP02 > 90% ON RA. ATTENDS IN PLACE D/T PT INTERMITTENLY INCONTINENT D/T FORGETFULNESS. PT HIGH FALL RISK D/T FREQUENT ATTEMPTS TO GET UP OUT OF BED DESPITE HIS VERY UNSTEADY GAIT. BED ALARM IS ON. PT ROOM LOCATED IN FRONT OF NURSE STATION. NO ACUTE EVENTS THIS SHIFT.
[2023-06-27 07:21] VITALS: BP 142/96
[2023-06-27 07:51] LABS: BASOPHILS ABSOLUTE AUTO 0.09 K/mm3 (0.00-0.23); BASOPHILS PERCENT AUTO 1 % (0-2); EOSINOPHILS ABSOLUTE AUTO 0.63 K/mm3 (0.00-0.68); EOSINOPHILS PERCENT AUTO 8 % (0-6); Hematocrit 27.8 % (37.0-53.0); Hemoglobin 9.3 g/dL (13.5-17.5); IMMATURE GRAN ABSOLUTE AUTO 0.06 K/mm3 (0.00-0.10); IMMATURE GRAN PERCENT AUTO 1 % (0-1); LYMPHOCYTES ABSOLUTE AUTO 1.71 K/mm3 (0.84-5.20); LYMPHOCYTES PERCENT AUTO 21 % (21-46); MONOCYTES ABSOLUTE AUTO 1.09 K/mm3 (0.16-1.47); MONOCYTES PERCENT AUTO 13 % (4-13); Mean Corpuscular HGB Conc 33.5 g/dL (31.5-36.5); Mean Corpuscular Volume 99 fL (80-100); Mean Platelet Volume 10.6 fL (9.1-12.4); NEUTROPHILS ABSOLUTE AUTO 4.71 K/mm3 (1.96-9.15); NEUTROPHILS PERCENT AUTO 57 % (41-73); Platelet Count 342 K/mm3 (150-400); RDW Coefficient Variation 14.1 % (11.7-14.2); RDW Standard Deviation 51.8 fL (35.1-46.3); Red Blood Cell Count 2.82 M/mm3 (4.30-5.90); White Blood Cell Count 8.29 K/mm3 (4.00-11.30)
[2023-06-27 08:23] LABS: Magnesium, Blood 1.8 mg/dL (1.6-2.4)
[2023-06-27 08:25] LABS: Albumin, Blood 2.5 g/dL (3.4-5.0); Albumin/Globulin Ratio 0.5 (0.8-1.8); Bilirubin, Total 0.4 mg/dL (0.1-1.0); Bun/Creatinine Ratio 14.2 (12.0-20.0); Calcium, Blood 9.1 mg/dL (8.5-10.1); Creatinine, Blood 1.34 mg/dL (0.60-1.20); Globulin, Blood 4.8 g/dL (2.2-4.0); Phosphorus, Blood 1.8 mg/dL (2.5-4.9); Potassium, Blood 3.4 mmol/L (3.5-5.5); Total Protein, Blood 7.3 g/dL (6.4-8.2)
[2023-06-27] MEDS ORDERED: AmLODIPine Besylate 5 MG Tab PT SCH (09:00)
[2023-06-27 11:23] VITALS: BP 149/98
[2023-06-27 15:30] VITALS: BP 126/101
[2023-06-27] MEDS ORDERED: Sodium Phosphate 30 MM in Dextrose 5% 500 ML IV STA (16:10)
[2023-06-27] MEDS ORDERED: Potassium Chloride 40 MEQ in NS 250 ML IV ONE (16:15)
--- NOTE | 2023-06-27 18:09 | NUR ---
END OF SHIFT SUMMARY ASSUMED CARE AT 0700. PT ALERT, ORIENTED ONLY TO SELF. RECOGNIZES THAT HE IS IN A HEALTHCARE FACIILITY, BUT NAMES ANOTHER CARE FACILITY EACH TIME ASKED. PT IS AMBULATING MORE THAN YESTERDAY WITH THE HELP OF 2-3 STAFF AND GAIT BELT. HE SPENT A COUPLE HOURS IN THE CHAIR THIS AFTERNOON. PT HAD SEVERAL EPISODES OF ATTEMPTING TO GET OUT OF BED ALONE AND LEAVE THE HOSPITAL. WAS SUCCESSFULLY REDIRECTED EACH TIME. PT DENIES CHEST PAIN AND CHEST PRESSURE. MEDICATED PER APR. WILL CONTINUE TO MONITOR AND GIVE REPORT TO ONCOMING NURSE
[2023-06-27 19:47] LABS: ALBUMIN 2.21 g/dL (3.75-5.01); ALPHA 1 GLOBULIN 0.47 g/dL (0.19-0.46); ALPHA 2 GLOBULIN 0.97 g/dL (0.48-1.05); BETA GLOBULIN 1.18 g/dL (0.48-1.10); GAMMA 0.87 g/dL (0.62-1.51); IMMUNOFIXATION IFE Done; IMMUNOGLOBULIN A 212 mg/dL (68-408); IMMUNOGLOBULIN G 971 mg/dL (768-1632); IMMUNOGLOBULIN M 85 mg/dL (35-263); KAPPA QNT FREE LIGHT CHAINS 60.04 mg/L (3.30-19.40); KAPPA/LAMBDA FLC RATIO 1.52 (0.26-1.65); LAMBDA QNT FREE LIGHT CHAINS 39.56 mg/L (5.71-26.30); TOTAL PROTEIN, SERUM 5.7 g/dL (6.3-8.2)
[2023-06-27 19:49] VITALS: BP 153/97
[2023-06-27 23:56] VITALS: BP 128/89
--- NOTE | 2023-06-28 02:48 | NUR ---
1915 Assumed care of pt, bedside report completed. Shift plan of care reviewed with pt, though pt appears to be unable to retain information/education. Pt with uneventful shift tonight. VSS remain stable and CIWA within range of prior. Pt alert though only oriented to self, unable to state birthday. Orientation status has not changed throughout this shift. Pt impulsive, often sitting on edge of bed or attemtping to get out of bed despite repeated falls reeducation. Bed alarm on at all times and pt in room near nursing station. Please see full assessment for addtional details. No further complaints or concerns at this time, will continue to monitor.
[2023-06-28 03:29] VITALS: BP 141/86
[2023-06-28 04:12] LABS: BASOPHILS ABSOLUTE AUTO 0.07 K/mm3 (0.00-0.23); BASOPHILS PERCENT AUTO 1 % (0-2); EOSINOPHILS ABSOLUTE AUTO 0.59 K/mm3 (0.00-0.68); EOSINOPHILS PERCENT AUTO 8 % (0-6); Hematocrit 25.7 % (37.0-53.0); Hemoglobin 8.5 g/dL (13.5-17.5); IMMATURE GRAN ABSOLUTE AUTO 0.05 K/mm3 (0.00-0.10); IMMATURE GRAN PERCENT AUTO 1 % (0-1); LYMPHOCYTES ABSOLUTE AUTO 2.19 K/mm3 (0.84-5.20); LYMPHOCYTES PERCENT AUTO 28 % (21-46); MONOCYTES ABSOLUTE AUTO 1.22 K/mm3 (0.16-1.47); MONOCYTES PERCENT AUTO 16 % (4-13); Mean Corpuscular HGB 32.3 pg (26.0-34.0); Mean Corpuscular HGB Conc 33.1 g/dL (31.5-36.5); Mean Corpuscular Volume 98 fL (80-100); Mean Platelet Volume 10.9 fL (9.1-12.4); NEUTROPHILS ABSOLUTE AUTO 3.61 K/mm3 (1.96-9.15); NEUTROPHILS PERCENT AUTO 47 % (41-73); Platelet Count 336 K/mm3 (150-400); RDW Coefficient Variation 14.1 % (11.7-14.2); Red Blood Cell Count 2.63 M/mm3 (4.30-5.90); White Blood Cell Count 7.73 K/mm3 (4.00-11.30)
[2023-06-28 04:29] LABS: Bun/Creatinine Ratio 12.3 (12.0-20.0); Calcium, Blood 8.5 mg/dL (8.5-10.1); Creatinine, Blood 1.38 mg/dL (0.60-1.20); Magnesium, Blood 1.6 mg/dL (1.6-2.4); Phosphorus, Blood 2.9 mg/dL (2.5-4.9); Potassium, Blood 3.6 mmol/L (3.5-5.5)
[2023-06-28 07:53] VITALS: BP 143/90
[2023-06-28 08:26] VITALS: BP 135/99
[2023-06-28] MEDS ORDERED: Docusate Sodium 100 MG Cap PO PRN (13:10)
[2023-06-28] MEDS ORDERED: Magnesium Hydroxide Conc 10 ML UDC PO PRN (13:10)
--- NOTE | 2023-06-28 13:38 | NUR ---
AM note Pt alert and oriented to name, place, and could state that it is the fifth month but unsure what the name of the month is. He denies any chest pain/pressure, pain, numb/tingling. Pt was on tele, sinus rhythm in the 80's-90's. Blood pressure slightly elevated but medicated per EMAR. O2 in the high 90's on RA. Other VSS. Patient switched to med status with no tele. He has some genralized weakness but ambulating with 1 person assist. No acute changes. Will continue to monitor.
[2023-06-28] MEDS ORDERED: Thiamine HCl 100 MG Tab PO SCH (14:00)
[2023-06-28 15:38] VITALS: BP 130/85
--- NOTE | 2023-06-28 18:58 | NUR ---
SHIFT SUMMARY/TRANSFER NOTE PT TRANSFERRED FROM PCU TO MEDICAL FLOOR AT APPROX 1535. REPORT RECEIVED FROM [facility] IN PCU. PT IS AxOx3-4 WITH INTERM CONFUSION/FORGETFULNESS UPON ARRIVAL. THIS RN HELPED PT CALLED HIS , RUBEN TO NOTIFY HER OF TRANSFER. PT DENIES PAIN TODAY. HE WAS PLEASANT AND COOPERATIVE WITH CARE AND CALLED APPROPRIATELY. BED ALARM ON FOR PREVIOUS IMPULSIVITY D/T BATHROOM NEEDS. PT AMBULATED WELL WITH 1 ASSIST, FWW AND GB, BUT STILL HAS UNSTEADY GAIT AT THIS TIME. PT IS CURRENTLY RESTING IN BED WITH DINNER TRAY. CALL LIGHT IN REACH.
[2023-06-28 19:51] VITALS: BP 122/72
[2023-06-28] MEDS ORDERED: Carvedilol 6.25 MG Tab PO SCH (21:00)
[2023-06-29 03:30] VITALS: BP 111/77
[2023-06-29 06:30] LABS: BASOPHILS ABSOLUTE AUTO 0.07 K/mm3 (0.00-0.23); BASOPHILS PERCENT AUTO 1 % (0-2); EOSINOPHILS ABSOLUTE AUTO 0.54 K/mm3 (0.00-0.68); EOSINOPHILS PERCENT AUTO 6 % (0-6); Hematocrit 26.6 % (37.0-53.0); Hemoglobin 8.8 g/dL (13.5-17.5); IMMATURE GRAN ABSOLUTE AUTO 0.06 K/mm3 (0.00-0.10); IMMATURE GRAN PERCENT AUTO 1 % (0-1); LYMPHOCYTES ABSOLUTE AUTO 1.81 K/mm3 (0.84-5.20); LYMPHOCYTES PERCENT AUTO 19 % (21-46); MONOCYTES ABSOLUTE AUTO 1.19 K/mm3 (0.16-1.47); MONOCYTES PERCENT AUTO 13 % (4-13); Mean Corpuscular HGB 32.6 pg (26.0-34.0); Mean Corpuscular HGB Conc 33.1 g/dL (31.5-36.5); Mean Corpuscular Volume 99 fL (80-100); Mean Platelet Volume 10.6 fL (9.1-12.4); NEUTROPHILS PERCENT AUTO 61 % (41-73); Platelet Count 354 K/mm3 (150-400); RDW Coefficient Variation 14.5 % (11.7-14.2); RDW Standard Deviation 52.1 fL (35.1-46.3); White Blood Cell Count 9.37 K/mm3 (4.00-11.30)
--- NOTE | 2023-06-29 06:42 | NUR ---
SHIFT SUMMARY PT ALERT AND ORIENTED ABLE TO MAKE NEEDS KNOWN. AMBULATED WITH ASSISTNACE TO TOILET X 1 DURING NIGHT. USED URINAL REST OF NIGHT INDEPENDENTLY. NO COMPLAINTS OF PIAN. PT SLEPT WELL THROUGH OUT THE NIGHT.
[2023-06-29 06:46] LABS: Bun/Creatinine Ratio 12.8 (12.0-20.0); Calcium, Blood 8.9 mg/dL (8.5-10.1); Creatinine, Blood 1.33 mg/dL (0.60-1.20); Potassium, Blood 3.8 mmol/L (3.5-5.5)
[2023-06-29 07:40] VITALS: BP 136/82
[2023-06-29] MEDS ORDERED: AmLODIPine Besylate 5 MG Tab PO SCH (09:00)
[2023-06-29] MEDS ORDERED: Multivitamins/Minerals TAB PO SCH (09:00)
[2023-06-29] MEDS ORDERED: Folic Acid 1 MG TAB PO SCH (09:00)
[2023-06-29 15:03] VITALS: BP 126/79
--- NOTE | 2023-06-29 18:19 | NUR ---
PATIENT A/OX2, CONFUSED ABOUT SITUTATION AD DATE. VSS, ON RA. DENIES ANY PAIN. AMBULATING WITH FWW AND 1 ASSIST. WORKED WITH PT/OT TODAY. HOME WITH HOME HEALTH IS THE PLAN. PATIENT PLEASANT AND COOPERATIVE WITH CARE. FALL PRECAUTIONS IN PLACE. NO NEW CONCERNS THIS SHIFT.
[2023-06-29 19:36] VITALS: BP 130/77
[2023-06-30 02:32] VITALS: BP 120/81
[2023-06-30 07:00] LABS: Albumin, Blood 2.3 g/dL (3.4-5.0); Albumin/Globulin Ratio 0.5 (0.8-1.8); Bilirubin, Total 0.3 mg/dL (0.1-1.0); Bun/Creatinine Ratio 13.7 (12.0-20.0); Calcium, Blood 8.7 mg/dL (8.5-10.1); Creatinine, Blood 1.24 mg/dL (0.60-1.20); Globulin, Blood 4.4 g/dL (2.2-4.0); Potassium, Blood 4.2 mmol/L (3.5-5.5); Total Protein, Blood 6.7 g/dL (6.4-8.2)
[2023-06-30 07:41] VITALS: BP 130/85
[2023-06-30] MEDS ORDERED: DAILY-VITE1 EAC1 PO (10:14)
--- NOTE | 2023-06-30 11:45 | NUR ---
DISCHARGE PT A&O X4, COOPERATIVE. WORKED WITH PT WITHOUT COMPLAINTS. DISCONTINUED LEFT FOREARM IV W/O COMPLAINTS, DISCONT POWERGLIDE RIGHT UPPER ARM W/O COMPLAINTS. BOTH WRAPPED WITH GAUZE AND COBAN. WENT OVER DISCHARGE PAPERWORK WITH HIM, HE WAS RECEPTIVE. INFORMED ONE NEW MED (MULTIVIT) AND FAXED TO [facility] [place]. [employer] TRANSPORTED PT VIA WC TO [facility].
--- NOTE | 2023-06-30 11:56 | NUR ---
REVIEWED ASSESSMENTS AND NOTES CHARTED BY ASHLEY, STUDENT NURSE AND I AGREE WITH HIS DOCUMENTATION FOR THIS PATIENT.
[2023-07-01 18:03] LABS: ALBUMIN %,URINE 14.9 %; ALPHA-1 %,URINE 12.2 %; ALPHA-2 %,URINE 33.9 %; BETA GLOBULIN %,URINE 27.1 %; GAMMA GLOBULIN %,URINE 11.9 %; HOURS COLLECTED Random hr; TOTAL PROTEIN,URINE-PER VOLUME 14 mg/dL; TOTAL VOLUME Random mL
== END 2023-06-30 11:45 | disposition home health service (06) | DRG 896 ==
LOC: ER 12:26 → PCU 15:00 → ICUE 15:00 → PCU 06-26 14:45 → MEDS 06-28 15:35 → ENPENDDIS 06-30 10:01 → MEDS 06-30 11:45
PROVIDERS: Emergency Medicine; Family Medicine; Internal Medicine; Internal Medicine Critical Care Medicine; Student in an Organized Health Care Education/Training Program; ADMIT Hospitalist
PROC: 0DH67UZ Insertion of Feeding Device into Stomach, Via Natural or Artificial Opening (ICD-10-PCS; principal; 2023-06-21)
PROC: 0T9B70Z Drainage of Bladder with Drainage Device, Via Natural or Artificial Opening (ICD-10-PCS; 2023-06-21)
PROC: HZ2ZZZZ Detoxification Services for Substance Abuse Treatment (ICD-10-PCS; 2023-06-21)
PROC: 5A1945Z Respiratory Ventilation, 24-96 Consecutive Hours (ICD-10-PCS; 2023-06-21)
PROC: 0BH17EZ Insertion of Endotracheal Airway into Trachea, Via Natural or Artificial Opening (ICD-10-PCS; 2023-06-21)
PROC: 4A033R1 Measurement of Arterial Saturation, Peripheral, Percutaneous Approach (ICD-10-PCS; 2023-06-22)
DX: F10.239 Alcohol dependence with withdrawal, unspecified (principal); G92.8 Other toxic encephalopathy; J96.01 Acute respiratory failure with hypoxia; N17.9 Acute kidney failure, unspecified; E87.1 Hypo-osmolality and hyponatremia; I30.9 Acute pericarditis, unspecified; I16.9 Hypertensive crisis, unspecified; E87.21 Acute metabolic acidosis; E83.52 Hypercalcemia; E86.0 Dehydration; Z66 Do not resuscitate; R56.9 Unspecified convulsions; Y90.0 Blood alcohol level of less than 20 mg/100 ml; E83.39 Other disorders of phosphorus metabolism; Z79.899 Other long term (current) drug therapy; F41.9 Anxiety disorder, unspecified; F32.A Depression, unspecified; J44.9 Chronic obstructive pulmonary disease, unspecified; G43.909 Migraine, unspecified, not intractable, without status migrainosus; Z88.8 Allergy status to other drugs, medicaments and biological substances; Z79.82 Long term (current) use of aspirin; K02.9 Dental caries, unspecified; E83.42 Hypomagnesemia; D64.9 Anemia, unspecified; E87.6 Hypokalemia; F11.90 Opioid use, unspecified, uncomplicated; E87.8 Other disorders of electrolyte and fluid balance, not elsewhere classified
CPT/HCPCS: 36415; 36600; 51702; 70450; 70496; 70498; 71045; 80047; 80048; 80053; 81001; 82306; 82330; 82542; 82550; 82552; 82607; 82652; 82728; 82746; 82784; 82803; 82947; 83521; 83540; 83550; 83735; 83970; 84100; 84105; 84155; 84165; 84484; 85014; 85025; 85027; 85060; 86334; 87086; 93005; 93010; 94002; 94003; 94762; 96361-59; 96365-59; 96368; 97116; 97162; 97165; 97530; 97535; 99291-25; A9270; C1751; C9113; J0360; J0630; J1644; J2060; J2250; J2704; J3010; J3411; J3475; J3480; J7030; J7042; J7050; J7060; Q9967

== ENCOUNTER 2023-07-26 10:31 | Inpatient (IN) | payer OTHER ==
[~2023-07-26] VITALS: Ht 175.3 cm; Wt 62.5 kg
[2023-07-26] VITALS (23 sets, daily range): BP systolic 92–143; BP diastolic 65–91
[~2023-07-26 10:31] MED LIST changes: -DOCU100 PO; -PANT20 PO; -Percocet 5-3251 EACH PO; -SUCR1 PO
[2023-07-26 10:58] LABS: Hematocrit 27.7 % (37.0-53.0); Hemoglobin 8.7 g/dL (13.5-17.5); Mean Corpuscular HGB 30.3 pg (26.0-34.0); Mean Corpuscular HGB Conc 31.4 g/dL (31.5-36.5); Mean Corpuscular Volume 97 fL (80-100); Mean Platelet Volume 9.9 fL (9.1-12.4); Platelet Count 577 K/mm3 (150-400); RDW Coefficient Variation 16.6 % (11.7-14.2); RDW Standard Deviation 59.3 fL (35.1-46.3); Red Blood Cell Count 2.87 M/mm3 (4.30-5.90); White Blood Cell Count 13.73 K/mm3 (4.00-11.30)
[2023-07-26] MEDS ORDERED: Sodium Bicarb 8.4% 50 mEq Syringe IV ONE (11:00)
[2023-07-26] MEDS ORDERED: Insulin Regular 100 Unit/ML 1ML Dose IV ONE (11:00)
[2023-07-26] MEDS ORDERED: Calcium Gluconate 10% 100 MG/ML INJ IV ONE (11:00)
[2023-07-26] MEDS ORDERED: Dextrose 50% 50 ML Syringe IV ONE ×2 (11:00→13:50)
[2023-07-26] MEDS ORDERED: Ondansetron HCl 2 MG / ML 2ML Vial IV ONE (11:05)
[2023-07-26] MEDS ORDERED: NS 1,000 ML IV SCH ×2 (11:05→12:45)
[2023-07-26] MEDS ORDERED: HYDROmorphone HCl/Pf 1MG SYR IV ONE (11:05)
[2023-07-26] MEDS ORDERED: Sodium Bicarb 8.4% 1 MEQ/ML 50 ML Vial IV ONE (11:10)
[2023-07-26 11:13] LABS: Albumin/Globulin Ratio 0.4 (0.8-1.8); Bilirubin, Total 2.1 mg/dL (0.1-1.0); Bun/Creatinine Ratio 9.6 (12.0-20.0); Calcium, Blood 10.4 mg/dL (8.5-10.1); Creatinine, Blood 2.39 mg/dL (0.60-1.20); Potassium, Blood 5.7 mmol/L (3.5-5.5)
[2023-07-26 11:25] LABS: BAND PERCENT MAN 13 % (0-8); BASOPHILS PERCENT MAN 0 % (0-2); EOSINOPHILS PERCENT MAN 0 % (0-6); LYMPHOCYTES ABSOLUTE MAN 0.96 K/mm3 (0.84-5.20); LYMPHOCYTES PERCENT MAN 7 % (21-46); MONOCYTES ABSOLUTE MAN 0.68 K/mm3 (0.16-1.47); MONOCYTES PERCENT MAN 5 % (4-13); NEUTROPHILS ABSOLUTE MAN 12.08 K/mm3 (1.96-9.15); SEG NEUTROPHILS PERCENT MAN 75 % (41-73); TOTAL CELLS COUNTED 100
[2023-07-26] MEDS ORDERED: Piperacillin/Tazobactam Sod 4.5 GM in NS 100 ML IV ONE (12:40)
[2023-07-26] MEDS ORDERED: Lactated Ringer's 1,000 ML IV SCH ×2 (13:35→14:05)
[2023-07-26 13:47] LABS: Bun/Creatinine Ratio 10.2 (12.0-20.0); Calcium, Blood 9.9 mg/dL (8.5-10.1); Creatinine, Blood 2.36 mg/dL (0.60-1.20)
--- NOTE | 2023-07-26 13:53 | NUR ---
PT HAS 20G IV TO RIGHT AC THAT FLUSHES WELL AND FLOWS TO GRAVITY.
[2023-07-26] MEDS ORDERED: Magnesium Hydroxide Conc 10 ML UDC PO PRN (14:05)
[2023-07-26] MEDS ORDERED: HydrALAZINE HCl 20 MG / ML 1ML Vial IV PRN (14:05)
[2023-07-26] MEDS ORDERED: Bupivacaine 0.5% HCl 5 MG/ML 30MLVIAL ONE (14:08)
[2023-07-26] MEDS ORDERED: Morphine Sulfate 4 MG/1 ML Injection IV PRN (14:10)
[2023-07-26] MEDS ORDERED: Bisacodyl 10 MG Supp PR PRN (14:10)
[2023-07-26] MEDS ORDERED: Acetaminophen 325 MG TABLET PO PRN (14:10)
[2023-07-26] MEDS ORDERED: OxyCODONE HCL 5 MG TAB PO PRN (14:10)
[2023-07-26] MEDS ORDERED: propofoL 20 ML IV ONE (14:13)
[2023-07-26] MEDS ORDERED: FentaNYL Citrate 50 MCG/ML 2 ML Injection ONE ×2 (14:13→16:38)
[2023-07-26] MEDS ORDERED: Prochlorperazine Edisylate 10 mg Vial IV PRN (14:15)
[2023-07-26] MEDS ORDERED: Zolpidem Tartrate 5 MG Tab PO PRN (14:15)
[2023-07-26] MEDS ORDERED: ePHEDrine Sulfate 50 MG/ML 1ML Injection ONE (14:21)
[2023-07-26] MEDS ORDERED: Indocyanine Green 25 MG Vial IV ONE (14:25)
--- NOTE | 2023-07-26 14:33 | NUR ---
NEW IV STARTED FOR ROLL BACK TO OR.
--- NOTE | 2023-07-26 14:41 | NUR ---
PT BELONGINGS PLACED UNDERNEATH GURNEY FOR SAFEKEEPING. PT PARTIALS AND GLASSES TAKEN TO PACU FOR SAFEKEEPING.
[2023-07-26] MEDS ORDERED: Pantoprazole Sodium 40 MG Injection IV SCH (15:00)
[2023-07-26] MEDS ORDERED: Rocuronium Bromide 10 MG/ML 5ML Injection IV ONE ×2 (15:40)
--- NOTE | 2023-07-26 16:59 | NUR ---
07/26/23 1659 Yaritza Brooks AT 1620 DR JOHNSON CALLED TO OR TO CONSULT. DR JOHNSON SCRUBBED IN TO ASSIST AT 1630.
[2023-07-26] MEDS ORDERED: Carvedilol 6.25 MG Tab PO SCH (17:00)
[2023-07-26] MEDS ORDERED: Sugammadex Sodium 200 MG/2ML SDV (100 MG/ML) ONE (17:17)
[2023-07-26] MEDS ORDERED: Albuterol 2.5 MG/3 ML VIAL ONE (18:01)
[2023-07-26] MEDS ORDERED: LORazepam 2 MG/ML 1ML Injection IM PRN (18:15)
[2023-07-26] MEDS ORDERED: LORazepam 2 MG/ML 1ML Injection IV PRN ×2 (18:15)
[2023-07-26] MEDS ORDERED: Magnesium Sulf 2 GM/Water 50ML 50 ML IV PRN (18:25)
[2023-07-26] MEDS ORDERED: Mag Sulfate 1 GM/D5% 100ML 100 ML IV PRN (18:25)
[2023-07-26] MEDS ORDERED: Folic Acid 1 MG in NS 50 ML IV SCH (19:00)
[2023-07-26] MEDS ORDERED: Thiamine HCl 100 MG in NS 50 ML IV SCH (19:00)
[2023-07-26] MEDS ORDERED: NS 250 ML IV PRN (19:40)
[2023-07-26 19:58] LABS: Hematocrit 34.7 % (37.0-53.0); Hemoglobin 11.1 g/dL (13.5-17.5); Mean Corpuscular HGB 29.8 pg (26.0-34.0); Mean Corpuscular Volume 93 fL (80-100); Mean Platelet Volume 9.7 fL (9.1-12.4); Platelet Count 468 K/mm3 (150-400); RDW Coefficient Variation 17.7 % (11.7-14.2); RDW Standard Deviation 60.7 fL (35.1-46.3); Red Blood Cell Count 3.73 M/mm3 (4.30-5.90)
[2023-07-26] MEDS ORDERED: Piperacillin/Tazobactam Sod 3.375 GM in NS 100 ML IV SCH (20:00)
[2023-07-26 20:11] LABS: Albumin, Blood 1.8 g/dL (3.4-5.0); Albumin/Globulin Ratio 0.4 (0.8-1.8); Bilirubin, Total 1.6 mg/dL (0.1-1.0); Bun/Creatinine Ratio 11.2 (12.0-20.0); Calcium, Blood 9.3 mg/dL (8.5-10.1); Creatinine, Blood 2.14 mg/dL (0.60-1.20); Globulin, Blood 4.6 g/dL (2.2-4.0); Potassium, Blood 5.7 mmol/L (3.5-5.5); Total Protein, Blood 6.4 g/dL (6.4-8.2)
[2023-07-26 20:18] LABS: BAND PERCENT MAN 38 % (0-8); BASOPHILS PERCENT MAN 0 % (0-2); EOSINOPHILS PERCENT MAN 0 % (0-6); LYMPHOCYTES ABSOLUTE MAN 0.67 K/mm3 (0.84-5.20); LYMPHOCYTES PERCENT MAN 6 % (21-46); MONOCYTES ABSOLUTE MAN 0.67 K/mm3 (0.16-1.47); MONOCYTES PERCENT MAN 6 % (4-13); NEUTROPHILS ABSOLUTE MAN 9.85 K/mm3 (1.96-9.15); SEG NEUTROPHILS PERCENT MAN 50 % (41-73); TOTAL CELLS COUNTED 100
[2023-07-26] MEDS ORDERED: Lactobacil 2-S.Thermo-Bifido 1 1 Cap PO SCH (21:00)
[2023-07-26] MEDS ORDERED: Docusate Sodium 100 MG Cap PO SCH (21:00)
[2023-07-26] MEDS ORDERED: Famotidine 20 MG Tab PO SCH (21:00)
--- NOTE | 2023-07-26 22:52 | NUR ---
ARRIVAL TO PCU AT APPROX 1999, PATIENT ARRIVED TO PCU FROM OR. TRANSFERRED FROM [facility] TO BED VIA SLIDER. PATIENT IS ALERT AND ORIENTED X4. PERRLA. MOVES ALL EXTREMITIES EQUALLY WITH GENERALIZED WEAKNESS. PREVIOUS ADMISSION FOR ETOH WITHDRAWAL - DENIES DRINKING SINCE DISCHARGE. NO S/S OF WITHDRAWAL NOTED. TELEMETRY SHOWING SINUS 80s. BP SOFT, SBP 90s-110s. MAP >65. DENIES CHEST PAIN, PRESSURE. ON ROOM AIR, SATs >90%. RESPIRATIONS EVEN, UNLABORED. DENIES SHORTNESS OF BREATH. S/P DUODENAL ULCER REPAIR - X5 LAP SITES W/ MEL DRAIN LLQ. MEL DRAINING GREENISH-BROWN FLUID. NG TUBE TO LOW CONTINUOUS SUCTION - DRAINING GREENISH-BROWN FLUID. DENIES PAIN AT THIS TIME. JARQUIN CATHETER PLACED IN OR, DRAINING YELLOW URINE TO GRAVITY. MAGNESIUM CRITICALLY LOW AT 0.8 (SEE CRITICAL VALUE DOCUMENTATION). 2GM IV MAG INFUSED PER EMAR. CALL LIGHT IN REACH. BED ALARM ON.
[2023-07-27] VITALS (7 sets, daily range): BP systolic 91–119; BP diastolic 64–75
[2023-07-27 04:00] LABS: Hematocrit 31.1 % (37.0-53.0); Hemoglobin 9.9 g/dL (13.5-17.5); Mean Corpuscular HGB 29.5 pg (26.0-34.0); Mean Corpuscular HGB Conc 31.8 g/dL (31.5-36.5); Mean Corpuscular Volume 93 fL (80-100); Platelet Count 425 K/mm3 (150-400); RDW Coefficient Variation 18.6 % (11.7-14.2); RDW Standard Deviation 63.3 fL (35.1-46.3); Red Blood Cell Count 3.36 M/mm3 (4.30-5.90); White Blood Cell Count 10.44 K/mm3 (4.00-11.30)
[2023-07-27 04:28] LABS: Albumin, Blood 1.5 g/dL (3.4-5.0); Albumin/Globulin Ratio 0.4 (0.8-1.8); Bun/Creatinine Ratio 12.7 (12.0-20.0); Calcium, Blood 8.7 mg/dL (8.5-10.1); Creatinine, Blood 2.12 mg/dL (0.60-1.20); Magnesium, Blood 1.7 mg/dL (1.6-2.4); Potassium, Blood 4.9 mmol/L (3.5-5.5); Total Protein, Blood 5.5 g/dL (6.4-8.2)
--- NOTE | 2023-07-27 04:39 | NUR ---
SHIFT SUMMARY NO ACUTE EVENTS SINCE ARRIVAL TO PCU NOTE. PATIENT SLEPT THROUGHOUT NIGHT, EASILY AROUSABLE WITH VERBAL STIMULI. NO S/S OF ETOH WITHDRAWAL OVERNIGHT. REMAINS ALERT AND ORIENTED X4. COMMUNICATES NEEDS EFFECTIVELY. TELEMETRY SHOWING SINUS 80s-90s. BP SOFT, SBP 90s-100s. MAP >65. DENIES CHEST PAIN, PRESSURE, DIZZINESS WITH POSITION CHANGES. REMAINS ON ROOM AIR, SATs >90%. RESPIRATIONS EVEN, UNLABORED. X5 LAP SITES REMAIN WNL - NO REDNESS, DRAINAGE. C/D/I. MEL DRAIN TO LLQ - DRAINING RED, GREEN FLUID. NG TUBE TO LOW CONTINUOUS SUCTION - MINIMAL GREENISH, BROWN DRAINAGE. DENIES PAIN T/O NIGHT. JARQUIN CATHETER REMAINS PATENT, DRAINING YELLOW URINE TO GRAVITY. MAGNESIUM LEVEL IMPROVED, 1.7 THIS MORNING. CALL LIGHT IN REACH. BED ALARM ON. WILL CONTINUE TO MONITOR AND REPORT TO ONCOMING RN.
[2023-07-27 05:19] LABS: BAND PERCENT MAN 41 % (0-8); BASOPHILS PERCENT MAN 0 % (0-2); EOSINOPHILS PERCENT MAN 0 % (0-6); LYMPHOCYTES ABSOLUTE MAN 1.46 K/mm3 (0.84-5.20); LYMPHOCYTES PERCENT MAN 14 % (21-46); METAMYELOCYTE PERCENT MAN 2 % (0-0); MONOCYTES ABSOLUTE MAN 0.52 K/mm3 (0.16-1.47); MONOCYTES PERCENT MAN 5 % (4-13); NEUTROPHILS ABSOLUTE MAN 8.24 K/mm3 (1.96-9.15); SEG NEUTROPHILS PERCENT MAN 38 % (41-73); TOTAL CELLS COUNTED 100
[2023-07-27] MEDS ORDERED: Mag Sulfate 1 GM/D5% 100ML 100 ML IV ONE (07:20)
[2023-07-27] MEDS ORDERED: Citalopram Hydrobromide 10 MG TAB PO SCH (09:00)
[2023-07-27] MEDS ORDERED: Morphine Sulfate 4 MG/1 ML Injection IV PRN (09:25)
[2023-07-27] MEDS ORDERED: Acetaminophen 650 MG Supp PR PRN (09:25)
[2023-07-27] MEDS ORDERED: NS 1,000 ML IV SCH (15:00)
--- NOTE | 2023-07-27 16:31 | NUR ---
Shift Summary Pt alert, oriented x4; calm and cooperative with care. Pt resting in bed, up to side of bed this am. Pt reports abd/ back pain, medicated with iv morphine x2; pt reporting releif. Pt has NG tube in place, draining green bile, set to medium intermittent suction, MEL drain to LLQ, draining serous fluid with muscus noted. Incisions sign c/d/i. Abd soft, tender, hypoactive, pt denies flatulus and no bm at this time. Tele sinus 70-90's, bp stable. Spo2 >90% on ra, breathing even and unlabored. Other vss. Razo in place and draining. No other acute changes noted. Report given to Rn assuming care of patient.
--- NOTE | 2023-07-27 17:45 | NUR ---
ARRIVAL TO SURGICAL UNIT VIA HOSPITAL BED, ALERT, ORIENTED, & PLEASANT. NGT TO INT SUCTION, MEL WNL, ABD SOFT. DENIES NEEDS.
[2023-07-27] MEDS ORDERED: Piperacillin/Tazobactam Sod 2.25 GM in NS 50 ML IV SCH (18:00)
[2023-07-28 04:42] VITALS: BP 118/80
[2023-07-28 05:02] LABS: Hematocrit 31.5 % (37.0-53.0); Hemoglobin 9.8 g/dL (13.5-17.5); Mean Corpuscular HGB 29.3 pg (26.0-34.0); Mean Corpuscular HGB Conc 31.1 g/dL (31.5-36.5); Mean Corpuscular Volume 94 fL (80-100); Mean Platelet Volume 9.9 fL (9.1-12.4); Platelet Count 424 K/mm3 (150-400); RDW Coefficient Variation 18.2 % (11.7-14.2); Red Blood Cell Count 3.35 M/mm3 (4.30-5.90); White Blood Cell Count 9.96 K/mm3 (4.00-11.30)
--- NOTE | 2023-07-28 05:04 | NUR ---
SHIFT SUMMARY POD 2 TIFFANY LAP REPAIR OF DUODENAL PERF c FALCIFORM PATCH. NO ACUTE CHANGES OVERNIGHT. VSS, TELE - NSR. NPO c NG TUBE TO L CONT, MIN OUTPUT OVERNIGHT. ICE CHIPS ALLOWED, NO REPORTS OF NAUSEA, BOWEL TONES HYPOACTIVE. IV FLUIDS & ABX INFUSING PER EMAR. LAP SITES x5 c WOUND GLUE TEOFILO C/D/I, MEL DRAINING SEROUS FLUID c FROTHY APPEARANCE. JARQUIN DRAINING YELLOW URINE TO GRAVITY. PT REPORTS PAIN TOLERABLE, MEDICATED PER EMAR. PT SLEPT WELL OVERNIGHT. CALL LIGHT IN REACH, BED IN LOWEST POSITION, WILL REPORT TO DAY RN.
[2023-07-28 05:40] LABS: Albumin, Blood 1.4 g/dL (3.4-5.0); Albumin/Globulin Ratio 0.3 (0.8-1.8); Bilirubin, Total 0.5 mg/dL (0.1-1.0); Bun/Creatinine Ratio 13.3 (12.0-20.0); Calcium, Blood 8.3 mg/dL (8.5-10.1); Creatinine, Blood 1.96 mg/dL (0.60-1.20); Globulin, Blood 4.5 g/dL (2.2-4.0); Potassium, Blood 4.3 mmol/L (3.5-5.5); Total Protein, Blood 5.9 g/dL (6.4-8.2)
[2023-07-28 06:36] LABS: BAND PERCENT MAN 26 % (0-8); BASOPHILS PERCENT MAN 0 % (0-2); EOSINOPHILS ABSOLUTE MAN 0.09 K/mm3 (0.00-0.68); EOSINOPHILS PERCENT MAN 1 % (0-6); LYMPHOCYTES % ATYPICAL MANUAL 1 % (0-0); LYMPHOCYTES ABSOLUTE MAN 1.49 K/mm3 (0.84-5.20); LYMPHOCYTES PERCENT MAN 14 % (21-46); MONOCYTES ABSOLUTE MAN 0.29 K/mm3 (0.16-1.47); MONOCYTES PERCENT MAN 3 % (4-13); NEUTROPHILS ABSOLUTE MAN 8.06 K/mm3 (1.96-9.15); SEG NEUTROPHILS PERCENT MAN 55 % (41-73); TOTAL CELLS COUNTED 100
[2023-07-28 07:23] VITALS: BP 104/68
[2023-07-28] MEDS ORDERED: Lactated Ringer's 1,000 ML IV SCH (09:50)
[2023-07-28] MEDS ORDERED: TPN Consult Notification XX ONE (11:00)
[2023-07-28] MEDS ORDERED: Dextrose 50% 50 ML Vial IV ONE (14:00)
[2023-07-28] MEDS ORDERED: Dextrose 50% 50 ML Syringe ONE (14:01)
[2023-07-28] MEDS ORDERED: Dextrose 50% 50 ML Syringe IV PRN (14:10)
[2023-07-28] MEDS ORDERED: Dextrose 5% 500 ML IV SCH (14:10)
--- NOTE | 2023-07-28 14:12 | NUR ---
NOTIFIED DR. RODRIGUEZ OF CB OF 52, PT ASYMPTOMATIC AT THIS TIME. D50 VIAL ADMINISTERED PER ORDERS. WILL RECHECK IN 15 MINUTES. PT SITTING UP IN BED. POWERGLIDE BEING PLACED.
--- NOTE | 2023-07-28 16:58 | NUR ---
THIS NURSE ASSUMED CARE FROM KAM WILLOUGHBY AFTER HE GAVE REPORT TO THIS NURSE.
[2023-07-28] MEDS ORDERED: Parenteral Electolytes 40 ML,Multivitamins 10 ML,ZINC SULF/CUSO4 P-HYD/MN/CR/SE 1 ML in... IV SCH (17:00)
--- NOTE | 2023-07-28 17:32 | NUR ---
SHIFT SUMMARY PT A&OX4. POD2 FROM TIFFANY LAP REPAIR OF DUODENAL PERF. PT HAS 5 LAP SITES, C/D/I. PT HAS MEL DRAIN, MEL DRAIN HAS NO KINKS, SQUEEZED AND FLOWING. IT HAS YELLOW FROTHY FLUID PRESENT. REPORTS ABDOMINAL/BACK PAIN, MANAGED PER EMAR AND REST. PT IS NPO. PT HAS NG TUBE. NG TUBE IS ON LOW CONTINUOUS SUCTION. GAS, NO BM. PT HAS HAD ICE CHIPS DURING SHIFT. PT BLOOD SUGAR WAS 52, SEE NURSE NOTES. PT BLOOD SUGAR CHECKS ARE INCREASED TO Q6. HAS RECEIVED POWERGLIDE AND NOW IS GETTING PPN PER ORDER. D/C JARQUIN, PT IS VOIDING USING URINAL. CALL LIGHT IN REACH.
[2023-07-29 04:46] VITALS: BP 147/86
[2023-07-29 05:03] LABS: Hematocrit 29.6 % (37.0-53.0); Hemoglobin 9.2 g/dL (13.5-17.5); Mean Corpuscular HGB 28.8 pg (26.0-34.0); Mean Corpuscular HGB Conc 31.1 g/dL (31.5-36.5); Mean Corpuscular Volume 93 fL (80-100); Platelet Count 446 K/mm3 (150-400); RDW Coefficient Variation 17.2 % (11.7-14.2); RDW Standard Deviation 59.6 fL (35.1-46.3); White Blood Cell Count 8.81 K/mm3 (4.00-11.30)
--- NOTE | 2023-07-29 05:03 | NUR ---
SHIFT SUMMARY POD 3 EX LAP REPAIR OF DUOD PERF W/FALCIFER PATCH PT ABLE TO REST DURING THE NIGHT. PAIN MANAGED PER EMAR. PT TOLERATING ICE CHIPS. X5 LAP SITES, CLOSED WTIH WOUND GLUE, C/D/I. MEL DRAIN IN LLQ, DRESSING IS C/D/I. MEL OUTPUT IS YELLOW/GREEN LIQUID. PT VOIDING WELL. NG TUBE HAS HAD VERY LITTLE TO NO OUTPUT. PPN RUNNING ALL NIGHT. NO OTHER CONCERNS AT THIS TIME, CALL LIGHT WIHIN REACH
[2023-07-29 05:28] LABS: Alanine Aminotransfer (ALT/SGP 9 U/L (12-78); Albumin, Blood 1.3 g/dL (3.4-5.0); Albumin/Globulin Ratio 0.3 (0.8-1.8); Alk Phos 95 U/L (50-136); Anion Gap 8 mmol/L (3-11); Aspartate Aminotrans (AST/SGOT 11 U/L (12-37); Bilirubin, Total 0.3 mg/dL (0.1-1.0); Blood Urea Nitrogen 18 mg/dL (8-24); Bun/Creatinine Ratio 12.8 (12.0-20.0); CO2, Blood 25 mmol/L (21-32); Calcium, Blood 8.5 mg/dL (8.5-10.1); Chloride, Blood 108 mmol/L (98-108); Creatinine, Blood 1.41 mg/dL (0.60-1.20); Globulin, Blood 4.8 g/dL (2.2-4.0); Glomerular Filtration Rate 56 (60-); Glucose, Blood 157 mg/dL (70-99); Magnesium, Blood 1.7 mg/dL (1.6-2.4); Phosphorus, Blood 1.6 mg/dL (2.5-4.9); Potassium, Blood 3.7 mmol/L (3.5-5.5); Sodium, Blood 137 mmol/L (136-145); Total Protein, Blood 6.1 g/dL (6.4-8.2); Triglycerides 112 mg/dL (30-160)
[2023-07-29 05:54] LABS: BAND PERCENT MAN 13 % (0-8); BASOPHILS PERCENT MAN 0 % (0-2); EOSINOPHILS ABSOLUTE MAN 0.08 K/mm3 (0.00-0.68); EOSINOPHILS PERCENT MAN 1 % (0-6); LYMPHOCYTES ABSOLUTE MAN 1.23 K/mm3 (0.84-5.20); LYMPHOCYTES PERCENT MAN 14 % (21-46); MONOCYTES ABSOLUTE MAN 0.61 K/mm3 (0.16-1.47); MONOCYTES PERCENT MAN 7 % (4-13); MYELOCYTE ABSOLUTE MAN 0.17 K/mm3 (0.00-0.00); MYELOCYTE PERCENT MAN 2 % (0-0); NEUTROPHILS ABSOLUTE MAN 6.69 K/mm3 (1.96-9.15); SEG NEUTROPHILS PERCENT MAN 63 % (41-73); TOTAL CELLS COUNTED 100
[2023-07-29 07:43] VITALS: BP 149/89
[2023-07-29] MEDS ORDERED: Potassium Phosphate Dibasic 15 MM in Dextrose 5% 250 ML IV STA (08:33)
[2023-07-29] MEDS ORDERED: Mag Sulfate 1 GM/D5% 100ML 100 ML IV STA (08:33)
[2023-07-29] MEDS ORDERED: Piperacillin/Tazobactam Sod 3.375 GM in NS 100 ML IV SCH (12:00)
[2023-07-29 15:22] VITALS: BP 158/89
[2023-07-29 15:32] VITALS: BP 158/89
[2023-07-29] MEDS ORDERED: [UNRECOGNIZED DRUG - NUTRITION] IV SCH (17:00)
--- NOTE | 2023-07-29 17:51 | NUR ---
SHIFT SUMMARY: POD 3 EX LAP REPAIR OF DUOD PERF WITH FALCIFER PATCH PATIENT IS A&OX4. VS ARE WNL AND IS ON RA WITH >90% OXYGEN SATS. PAIN IS MANAGED WITH IV MORPHINE. HIS ABD HAS X5 LAP SITES WITH WOUND GLUE THAT ARE C/D/I. HE ALSO HAS A MEL DRAIN ON HIS LLQ OF ABD WITH THE BULB COMPRESSED AND HAS LIGHT GREEN OUTPUT. PATIENT CONTINUES TO BE NPO BUT ICE CHIPS AND SIPS OF WATER AND APPLE JUICE ARE OKAY PER DR. ROBERTS. HIS NG TUBE IS ON LOW CONTINUOUS SUCTION WITH LIGHT GREEN/CLEAR OUTPUT. PATIENT ACCIDENTALLY PULLED A SMALL PORTION OF HIS NG TUBE OUT EARLIER TODAY. THIS NURSE NOTIFIED DR. ROBERTS AND SHE ORDERED A PORTABLE ABD X-RAY STAT TO CONFIRM PATIENTS NG TUBE WAS STILL IN THE CORRECT PLACE. AFTER THE RADIOLOGIST REPORT OF ABD X-RAY DR. ROBERTS READ IT AND STATED THE NG TUBE WAS STILL PLACED IN THE CORRECT SPOT. PPN AND IV ABX INFUSING PER EMAR. PATIENT IS VOIDING AND DID HAVE A SMALL BROWN/LOOSE STOOL TODAY ON THE BSC. PATIENT IS A SBA IN THE ROOM WITH MANAGEMENT OF CORDS AND IV POLE. PATIENT IS CURRENTLY LAYING IN BED WITH CALL LIGHT IN REACH. PATIENT CALLS APPROPRIATELY.
[2023-07-29 20:05] VITALS: BP 157/89
[2023-07-30 04:18] VITALS: BP 165/95
--- NOTE | 2023-07-30 04:52 | NUR ---
SHIFT SUMMARY PT IS POD4 FOR DUOD PERF REPAIR W/ FALCIFER PATCH W/ DR. ROBERTS. PAIN CURRENTLY MANAGED W/ IV MORPHINE. LAP SITES X5 W/ EXOFEN C/D/I. MEL DRAIN TO LLQ, BULB COMPRESSED AND DRAINING LIGHT YELLOW/GREEN FLUID. NGT TO LOW CONT SUCTION DRAINING SMALL AMOUNT OF YELLOW/GREEN FLUID. VSS. PPN AND IV ABX RUNNING PER EMAR. PT IS A STANDBY TO BSC, HAS NOT HAD A BM THIS SHIFT BUT IS PASSING GAS. PT TOLERATING SMALL AMOUNT OF PO ICE CHIPS W/O N/V, NO INCREASE IN ABD DISTENTION NOTED. PT USING CALL LIGHT APPROPRIATELY.
[2023-07-30 04:53] LABS: Bun/Creatinine Ratio 12.5 (12.0-20.0); Calcium, Blood 8.8 mg/dL (8.5-10.1); Creatinine, Blood 1.04 mg/dL (0.60-1.20); Magnesium, Blood 1.7 mg/dL (1.6-2.4); Phosphorus, Blood 2.5 mg/dL (2.5-4.9); Potassium, Blood 3.9 mmol/L (3.5-5.5)
[2023-07-30 07:51] VITALS: BP 157/97
[2023-07-30] MEDS ORDERED: Morphine Sulfate 4 MG/1 ML Injection IV PRN (13:20)
--- NOTE | 2023-07-30 13:33 | NUR ---
DRESSING CHANGED AROUND MEL SITE.
[2023-07-30 21:11] VITALS: BP 153/87
[2023-07-30 21:12] VITALS: BP 153/87
[2023-07-31 03:32] LABS: Hematocrit 32.1 % (37.0-53.0); Hemoglobin 10.5 g/dL (13.5-17.5); Mean Corpuscular HGB 29.5 pg (26.0-34.0); Mean Corpuscular HGB Conc 32.7 g/dL (31.5-36.5); Mean Corpuscular Volume 90 fL (80-100); Platelet Count 417 K/mm3 (150-400); RDW Coefficient Variation 16.2 % (11.7-14.2); RDW Standard Deviation 54.3 fL (35.1-46.3); Red Blood Cell Count 3.56 M/mm3 (4.30-5.90); White Blood Cell Count 8.61 K/mm3 (4.00-11.30)
[2023-07-31 03:52] VITALS: BP 154/79
[2023-07-31 03:53] LABS: Albumin, Blood 1.4 g/dL (3.4-5.0); Albumin/Globulin Ratio 0.3 (0.8-1.8); Bilirubin, Total 0.3 mg/dL (0.1-1.0); Bun/Creatinine Ratio 14.5 (12.0-20.0); Calcium, Blood 8.7 mg/dL (8.5-10.1); Creatinine, Blood 0.9 mg/dL (0.60-1.20); Globulin, Blood 5.1 g/dL (2.2-4.0); Magnesium, Blood 1.6 mg/dL (1.6-2.4); Potassium, Blood 3.9 mmol/L (3.5-5.5); Total Protein, Blood 6.5 g/dL (6.4-8.2)
[2023-07-31 04:03] LABS: BAND PERCENT MAN 6 % (0-8); BASOPHILS PERCENT MAN 0 % (0-2); EOSINOPHILS ABSOLUTE MAN 0.34 K/mm3 (0.00-0.68); EOSINOPHILS PERCENT MAN 4 % (0-6); LYMPHOCYTES ABSOLUTE MAN 1.29 K/mm3 (0.84-5.20); LYMPHOCYTES PERCENT MAN 15 % (21-46); MONOCYTES ABSOLUTE MAN 1.29 K/mm3 (0.16-1.47); MONOCYTES PERCENT MAN 15 % (4-13); MYELOCYTE ABSOLUTE MAN 0.17 K/mm3 (0.00-0.00); MYELOCYTE PERCENT MAN 2 % (0-0); NEUTROPHILS ABSOLUTE MAN 5.51 K/mm3 (1.96-9.15); SEG NEUTROPHILS PERCENT MAN 58 % (41-73); TOTAL CELLS COUNTED 100
--- NOTE | 2023-07-31 05:38 | NUR ---
SHIFT SUMMARY POD5 FOR BOWEL PERF REPAIR W/ FALCIFER PATCH W/ DR. ROBERTS. PT A/O X4, STANDBY TO BSC. NG TUBE IN PLACE TO LCS, DRAINING SMALL AMNT OF YELLOW FLUID. MEL DRAIN IN PLACE LLQ, DRAINING YELLOW/GREEN FLUID. PT MEDICATED FOR PAIN THIS SHIFT W/ TOLERABLE RESULTS. DRESSINGS REMAIN C/D/I. IV FLUIDS AND ANTIBIOTICS RUNNING ORDERED. PT RESTED MOST OF SHIFT. VSS. CALL LIGHT IN REACH.
[2023-07-31 07:22] VITALS: BP 154/95
[2023-07-31 14:36] VITALS: BP 155/89
--- NOTE | 2023-07-31 14:36 | NUR ---
PT'S NG TUBE STAT LOCK CAME OFF AND PT'S NG TUBE CAME OFF 1.5-2 INCHES. NG TUBE WAS NOT REINSERTED, IT WAS TAPED IN PLACE. PT HAS HAD APPROXIMATELY 50ML OF OUTPUT FROM THE NG TUBE. DR. HADDAD NOTIFIED, PER DR. HADDAD DO NOT REINSERT NG TUBE BUT LEAVE IT IN PLACE.
--- NOTE | 2023-07-31 15:32 | NUR ---
SHIFT SUMMARY PT IS POD#5. PAIN MANAGED WITH MORPHINE. PT IS TOLERATING SMALL AMOUNTS OF SIPS AND CHIPS. NG TUBE IN PLACE, RETRACTED SLIGHTLY WHEN STAT LOCK CAME OFF, NG WAS TAPED IN PLACE WITHOUT REINSERTION, DR. HADDAD NOTIFIED. MINIMAL OUTPUT FROM NG. PT IS A 1 ASSIST WHEN OOB FOR HELP WITH LINES AND TUBES. PT USES CALL LIGHT APPROPRIATELY.
--- NOTE | 2023-07-31 19:30 | NUR ---
SHIFT SUMMARY PT IS POD#5. PAIN MANAGED WITH MORPHINE. MINIMAL OUT OF NG TUBE. MEL OUTPUT HAS DECREASED BUT REMAINS BILIOUS. PT IS A 1 ASSIST WHEN OOB. PT ENCOURAGED TO MOBILIZE OOB AND SIT UP TO THE CHAIR. BEDSIDE REPORT GIVEN TO TIEN RN, PT PARTICIPATED WITH BEDSIDE REPORT.
[2023-07-31 20:07] VITALS: BP 150/85
[2023-07-31 20:27] VITALS: BP 143/89
[2023-08-01 04:07] LABS: Hematocrit 30.9 % (37.0-53.0); Hemoglobin 10.1 g/dL (13.5-17.5); Mean Corpuscular HGB 29.4 pg (26.0-34.0); Mean Corpuscular HGB Conc 32.7 g/dL (31.5-36.5); Mean Corpuscular Volume 90 fL (80-100); Mean Platelet Volume 10.2 fL (9.1-12.4); Platelet Count 421 K/mm3 (150-400); RDW Coefficient Variation 16.2 % (11.7-14.2); RDW Standard Deviation 53.3 fL (35.1-46.3); Red Blood Cell Count 3.44 M/mm3 (4.30-5.90); White Blood Cell Count 10.07 K/mm3 (4.00-11.30)
[2023-08-01 04:28] LABS: BAND PERCENT MAN 13 % (0-8); BASOPHILS PERCENT MAN 1 % (0-2); EOSINOPHILS PERCENT MAN 7 % (0-6); LYMPHOCYTES % ATYPICAL MANUAL 1 % (0-0); LYMPHOCYTES ABSOLUTE MAN 1.61 K/mm3 (0.84-5.20); LYMPHOCYTES PERCENT MAN 15 % (21-46); METAMYELOCYTE PERCENT MAN 1 % (0-0); MONOCYTES PERCENT MAN 7 % (4-13); MYELOCYTE PERCENT MAN 1 % (0-0); NEUTROPHILS ABSOLUTE MAN 6.74 K/mm3 (1.96-9.15); SEG NEUTROPHILS PERCENT MAN 54 % (41-73); TOTAL CELLS COUNTED 100
[2023-08-01 04:33] LABS: Albumin, Blood 1.5 g/dL (3.4-5.0); Albumin/Globulin Ratio 0.3 (0.8-1.8); Bilirubin, Total 0.3 mg/dL (0.1-1.0); Bun/Creatinine Ratio 16.6 (12.0-20.0); Calcium, Blood 9.1 mg/dL (8.5-10.1); Creatinine, Blood 0.84 mg/dL (0.60-1.20); Globulin, Blood 5.3 g/dL (2.2-4.0); Magnesium, Blood 1.7 mg/dL (1.6-2.4); Potassium, Blood 4.2 mmol/L (3.5-5.5); Total Protein, Blood 6.8 g/dL (6.4-8.2)
[2023-08-01 05:21] VITALS: BP 156/78
--- NOTE | 2023-08-01 05:50 | NUR ---
SHIFT SUMMARY PT IS POD6 FOR BOWEL PERF REPAIR. A/OX4, IND W/ URINAL, SBA TO BSC. NG TUBE IN PLACE TO LIS, NO OUTPUT THIS SHIFT. IV ABX GIVEN PER EMAR. PT MEDICATED W/ MORPHINE FOR PAIN W/ TOLERABLE RESULTS. PPN RUNNING ORDERED. MEL DRAIN DRAINING YELLOW/GREEN FLUID. DRESSINGS REMAIN C/D/I. PLAN FOR UPPER GI IN AM AND LEAK TEST. PT ABLE TO SLEEP MOST OF SHIFT. VSS. CALL LIGHT IN REACH.
[2023-08-01 07:55] VITALS: BP 144/87
[2023-08-01 15:54] VITALS: BP 144/87
--- NOTE | 2023-08-01 16:28 | NUR ---
SHIFT SUMMARY POD 6 DUODENAL PERF REPAIR WITH FALCIFORM PATCH. UPPER GI DONE THIS AM. NGT REMAINS CONNECTED TO L.I.S. PT TOLERATING WELL. ADVANCED IN RADIOLOGY AT THEIR REQUEST. REMAINS PATENT. MEL DRAIN REMAINS COMPRESSED, MINIMAL OUTPUT. TOLERATING ICE CHIPS. PAIN MANAGED WELL PER EMAR. PT CALLS APPROPRIATLY, CONTINUES TO PASS FLATUS. LAP SITES REMAIN CDI.
[2023-08-01 19:18] VITALS: BP 155/87
[2023-08-02] VITALS (7 sets, daily range): BP systolic 128–187; BP diastolic 74–91
--- NOTE | 2023-08-02 00:04 | NUR ---
NGT PT REPORTED HE ACCIDENTALLY PULLED NGT OUT GOING TO THE BSC. NOTIFIED STEAM BOX TENDER MNilay JOHNSON. NO ORDER TO REINSERT NGT AT THIS TIME.
[2023-08-02 05:09] LABS: Hematocrit 30.8 % (37.0-53.0); Hemoglobin 9.9 g/dL (13.5-17.5); Mean Corpuscular HGB 29.2 pg (26.0-34.0); Mean Corpuscular HGB Conc 32.1 g/dL (31.5-36.5); Mean Corpuscular Volume 91 fL (80-100); Mean Platelet Volume 10.1 fL (9.1-12.4); Platelet Count 419 K/mm3 (150-400); RDW Coefficient Variation 16.1 % (11.7-14.2); RDW Standard Deviation 53.9 fL (35.1-46.3); Red Blood Cell Count 3.39 M/mm3 (4.30-5.90); White Blood Cell Count 11.37 K/mm3 (4.00-11.30)
[2023-08-02 05:33] LABS: Magnesium, Blood 1.8 mg/dL (1.6-2.4)
[2023-08-02 05:34] LABS: Bun/Creatinine Ratio 18.6 (12.0-20.0); Creatinine, Blood 0.92 mg/dL (0.60-1.20); Phosphorus, Blood 3.1 mg/dL (2.5-4.9); Potassium, Blood 4.2 mmol/L (3.5-5.5)
--- NOTE | 2023-08-02 05:46 | NUR ---
SHIFT SUMMARY PT PULLED NGT OUT EARLY THIS SHIFT. M.D. AWARE AND NOT REINSERTED PER ORDERS. PT RECEIVING MORPHINE FOR PAIN MANAGMENT. LAP SITES TO ABD REMAIN CDI AND MEL TO LLQ WITH MINIMAL YUNG COLORED OUTPUT. PPN + ABX PER ORDERS. PT INDEP TO BSC TO HAVE LIQ BMS. USES URINAL TO VOID. VSS. CALL LIGHT WITHIN REACH.
[2023-08-02] MEDS ORDERED: Enoxaparin 40 MG/0.4 ML SYR SC SCH (11:00)
[2023-08-02] MEDS ORDERED: TPN Consult Notification XX ONE (12:35)
[2023-08-02] MEDS ORDERED: Piperacillin/Tazobactam Sod 3.375 GM in NS 100 ML IV SCH (15:30)
--- NOTE | 2023-08-02 15:53 | NUR ---
WHILE ADMINISTERING MEDICATIONS PATIENT STATES "IT WAS TOUCH AND GO THERE FOR A LITTLE WHILE" WHEN ASKED WHAT THAT HE MEANT HE STATES HE HAD A LARGE SPIKE IN MID ABDOMINAL PAIN THAT QUICKLY RESOLVED. WHILE ASSESSING ABDOMEN PALPATED CREPITUS ALONG RIBS IN LUQ. PT DENIES PAIN CURRENTLY AND NO PAIN WITH PALPATION. MEL DRAIN REMAIN COMPRESSED WITH NO OUTPUT IN BULB. NOTIFIED DR. ROBERTS. PLAN TO ORDER A CT. PT ALSO MEDICATED FOR FEVER AND STATES HE IS FEELING BETTER NOW AFTER TYLENOL ADMINISTRATION. CONTINUES TO HAVE A LOW GRADE FEVER. INCENTIVE SPIROMETER PROVIDED. ABLE TO TAKE DEEP BREATHS.
[2023-08-02] MEDS ORDERED: SODIUM ACETATE 40 MEQ IV SCH (17:00)
[2023-08-02] MEDS ORDERED: SODIUM CHLORIDE 30 MEQ IV SCH (17:00)
[2023-08-02] MEDS ORDERED: Parenteral Electolytes 40 ML,Potassium Phosphate Dibasic 30 MM,Multivitamins 10 ML,ZINC... IV SCH (17:00)
[2023-08-02] MEDS ORDERED: [UNRECOGNIZED DRUG - OTHER] IV SCH (17:00)
--- NOTE | 2023-08-02 17:24 | NUR ---
SHIFT SUMMARY POD 7 DUODENAL PERF REPAIR WITH FALCIFORM PATCH. PT REMAINS NPO, HAS DENIED NAUSEA DURING SHIFT. MEL DRAIN REMAINS COMPRESSED. PAIN MANAGED PER EMAR. PT REPORTS CONTINUED FLATUS. NO CHANGES TO CREPITUS FELT SINCE PREVIOUS NOTE PT HAS DENIED FURTHER INCIDENTS OF EXTREME PAIN. IV ABX INFUSING PER EMAR PPN INFUSING PER EMAR.
--- NOTE | 2023-08-02 18:31 | NUR ---
HEARD A LOUD SOUND FROM PATIENTS ROOM. ENTERED ROOM AND FOUND PATIENT ON THE FLOOR. HE STATES HE TRIED TO SIT ON THE TOILET AND MISSED. HE WAS SITTING NEXT TO THE COMMODE AT THE FOOT OF HIS BED. HE DENIES HITTING HIS HEAD AND NO VISIBLE FARMER SEEN. PT STATES HIS FOOT SLIPPED. PT ABLE TO STAND AND TRANSFER BACK TO BED. UNSTEADY ON HIS FEET. BED ALARM PLACED ON AND PT EDUCATED ON CALLING WITH ALL TRANSFERS AT THIS TIME. PT AGREEABLE. CURRENTLY RESTING IN BED, HE REPORTS PAIN IN BACK THAT HAS BEEN PRESENT WHILE HE IS STUCK IN BED, DENIES ANY FURTHER NEW PAINS SINCE FALLING. DENIES SHORTNESS OF BREATH.
--- NOTE | 2023-08-02 20:02 | NUR ---
NOTIFIED HOSPITALIST OF PT VS AND PT STATUS. ORDERS FOR TORADOL X1 FOR FEVER MANAGEMENT + CBC IN AM. WILL CONT TO MONITOR PT.
[2023-08-02] MEDS ORDERED: Ketorolac Tromethamine 30mg Vial IV ONE (20:05)
[2023-08-03 03:58] VITALS: BP 150/79
--- NOTE | 2023-08-03 05:33 | NUR ---
SHIFT SUMMARY PT AFEBRILE AFTER TYLENOL SUPPOSITORY + X1 TORADOL THIS SHIFT. PT REPORTS ABD PAIN HAS HAD SOME IMPROVEMENT. IV MORPHINE FOR PAIN PRN. PT REPORTS FLATUS. DENIES N/V. NPO. LAP SITES TO ABD REMAINS CDI. MEL WITH MINIMAL CLEAR YELLOW. PPN + IV ABX PER ORDERS. UP OOB WITH [address]. USES CALL LIGHT APPROPRIATELY.
[2023-08-03 06:08] LABS: BASOPHILS ABSOLUTE AUTO 0.12 K/mm3 (0.00-0.23); BASOPHILS PERCENT AUTO 1 % (0-2); EOSINOPHILS ABSOLUTE AUTO 0.36 K/mm3 (0.00-0.68); EOSINOPHILS PERCENT AUTO 2 % (0-6); Hematocrit 35.4 % (37.0-53.0); Hemoglobin 11.2 g/dL (13.5-17.5); IMMATURE GRAN ABSOLUTE AUTO 0.53 K/mm3 (0.00-0.10); IMMATURE GRAN PERCENT AUTO 3 % (0-1); LYMPHOCYTES ABSOLUTE AUTO 1.36 K/mm3 (0.84-5.20); LYMPHOCYTES PERCENT AUTO 7 % (21-46); MONOCYTES ABSOLUTE AUTO 0.95 K/mm3 (0.16-1.47); MONOCYTES PERCENT AUTO 5 % (4-13); Mean Corpuscular HGB 29.6 pg (26.0-34.0); Mean Corpuscular HGB Conc 31.6 g/dL (31.5-36.5); Mean Corpuscular Volume 93 fL (80-100); Mean Platelet Volume 10.3 fL (9.1-12.4); NEUTROPHILS ABSOLUTE AUTO 15.03 K/mm3 (1.96-9.15); NEUTROPHILS PERCENT AUTO 82 % (41-73); Platelet Count 368 K/mm3 (150-400); RDW Coefficient Variation 16.2 % (11.7-14.2); RDW Standard Deviation 55.3 fL (35.1-46.3); Red Blood Cell Count 3.79 M/mm3 (4.30-5.90); White Blood Cell Count 18.35 K/mm3 (4.00-11.30)
[2023-08-03 06:36] LABS: Bun/Creatinine Ratio 20.2 (12.0-20.0); Calcium, Blood 9.1 mg/dL (8.5-10.1); Creatinine, Blood 0.94 mg/dL (0.60-1.20); Magnesium, Blood 1.9 mg/dL (1.6-2.4); Phosphorus, Blood 3.5 mg/dL (2.5-4.9); Potassium, Blood 4.4 mmol/L (3.5-5.5)
[2023-08-03 07:09] VITALS: BP 179/78
[2023-08-03 09:01] VITALS: BP 127/69
[2023-08-03] MEDS ORDERED: Sucralfate 1000MG / 10ML UD BTL PO SCH (12:00)
[2023-08-03] MEDS ORDERED: TPN Consult Notification XX ONE (13:50)
[2023-08-03 14:32] VITALS: BP 134/84
[2023-08-03] MEDS ORDERED: Parenteral Electolytes 40 ML,Potassium Phosphate Dibasic 30 MM,Multivitamins 10 ML,ZINC... IV SCH ×2 (17:00)
--- NOTE | 2023-08-03 17:55 | NUR ---
SHIFT SUMMARY POD8 DUOD ULCER/PATCH, MEL WITH 2MLS CLEAR YELLOW DC, LAP SITES CDI. A&OX4, VS: BLOOD PRESSURE TREATED WITH HYDRALAZINE X1 AND ELEVATED TEMP (TAKEN ORALLY) TREATED WITH SUPP TYLENOL X2, TCDB & I.S. EDU/ENC, REPOSITIONS SELF/UP TO CHAIR FOR SHORT PERIOD, WILLIAM ICE CHIPS, PAIN MANAGED WITH MORPH 2MG X2, ABX PER EMAR, SHOWERED TODAY, VOIDING/URINAL AND BMs/SBA TO BRP, IV/POWERGLIDE INFUSING. WILL REPORT TO ONCANDRY CHAUHAN RN.
[2023-08-03 20:31] VITALS: BP 110/92
[2023-08-04 05:07] VITALS: BP 142/82
--- NOTE | 2023-08-04 06:44 | NUR ---
SHIFT SUMMARY NO ACUTE CHANGES TO REPORT OVERNIGHT. PT HAS RESTED MOST OF THE NIGHT. MEDICATED FOR PAIN PRN PER EMAR. PT BOWEL TONES HYPERACTIVE. SURGICAL SITE WNL. MEL DRAIN IN PLACE WITH MINIMAL OUTPUT. IV NUTRITION INFUSING. VITALS STABLE. PLAN OF CARE REMAINS UNCHANGED. BED IN LOWEST POSITION, CALL LIGHT WITHIN REACH.
[2023-08-04 06:57] VITALS: BP 146/74
[2023-08-04 08:14] LABS: Hematocrit 31.1 % (37.0-53.0); Hemoglobin 9.9 g/dL (13.5-17.5); Mean Corpuscular HGB 28.7 pg (26.0-34.0); Mean Corpuscular HGB Conc 31.8 g/dL (31.5-36.5); Mean Corpuscular Volume 90 fL (80-100); Mean Platelet Volume 10.6 fL (9.1-12.4); Platelet Count 296 K/mm3 (150-400); RDW Coefficient Variation 16.1 % (11.7-14.2); RDW Standard Deviation 53.7 fL (35.1-46.3); Red Blood Cell Count 3.45 M/mm3 (4.30-5.90); White Blood Cell Count 20.06 K/mm3 (4.00-11.30)
[2023-08-04 08:30] LABS: Bun/Creatinine Ratio 19.9 (12.0-20.0); Creatinine, Blood 0.95 mg/dL (0.60-1.20); Magnesium, Blood 1.2 mg/dL (1.6-2.4); Phosphorus, Blood 2.5 mg/dL (2.5-4.9); Potassium, Blood 4.1 mmol/L (3.5-5.5)
[2023-08-04] MEDS ORDERED: Vancomycin HCL 1,500 MG in NS 250 ML IV ONE (09:20)
[2023-08-04] MEDS ORDERED: TPN Consult Notification XX ONE (11:40)
[2023-08-04 15:55] VITALS: BP 109/66
[2023-08-04 16:52] VITALS: BP 145/92
[2023-08-04] MEDS ORDERED: Potassium Phosphate Dibasic 30 MM,Multivitamins 10 ML,ZINC SULF/CUSO4 P-HYD/MN/CR/SE 1 ... IV SCH (17:00)
--- NOTE | 2023-08-04 17:26 | NUR ---
SHIFT SUMMARY POD9 TI[place] LAP DUOD ULCER/PATCH, 5 LAP SITES CDI, MEL WITH 2OMLS GREEN LIQUID DC. A&OX4, VSS/RA/AFEBRILE, TCDB & I.S. EDU/ENC, REPOSITIONS SELF, VOIDING/URINAL INDEPENDENTLY, UP TO BSC X2 FOR URGENT LIQ/THICK BMs, WILLIAM ICE CHIPS, PAIN MANAGED WITH MORPH 2MG X2, ABX - VANCO & ZOSYN PER EMAR IN LAC IV, PPN @ 105 MLS/HR IN POWERGLIDE ROSARIO. WILL REPORT TO ONCOMING NOC RN.
[2023-08-04 20:32] VITALS: BP 165/87
[2023-08-04] MEDS ORDERED: Vancomycin HCL 1,000 MG in NS 100 ML IV SCH (22:00)
[2023-08-05 03:17] VITALS: BP 137/75
--- NOTE | 2023-08-05 05:11 | NUR ---
SHIFT SUMMARY POD 10 [place] LAP DUOD PERF REAPIR/PATCH PT LESLIE TO REST DURING THE NIGHT. PAIN MANAGED PER EMAR. PT WILLIAM ICE CHIPS. VOIDING WELL. PT REMAINS AFEBRILE, GAVE PT TYLENOL FOR PT FEELING HOT AND HAVING BODY ACHES. PPN RUNNING PER EMAR. VSS. NO OTHER COCERNS AT THIS TIME, CALL LIGHT WITHIN REACH
[2023-08-05 06:40] LABS: Albumin, Blood 1.5 g/dL (3.4-5.0); Anion Gap 10 mmol/L (3-11); Blood Urea Nitrogen 21 mg/dL (8-24); Bun/Creatinine Ratio 26.4 (12.0-20.0); CO2, Blood 23 mmol/L (21-32); Calcium, Blood 8.9 mg/dL (8.5-10.1); Chloride, Blood 106 mmol/L (98-108); Creatinine, Blood 0.79 mg/dL (0.60-1.20); Glomerular Filtration Rate 99 (60-); Glucose, Blood 120 mg/dL (70-99); Magnesium, Blood 2.1 mg/dL (1.6-2.4); Phosphorus, Blood 2.4 mg/dL (2.5-4.9); Sodium, Blood 135 mmol/L (136-145); Triglycerides 184 mg/dL (30-160)
[2023-08-05 07:34] VITALS: BP 113/76
[2023-08-05] MEDS ORDERED: Lactated Ringer's 1,000 ML IV SCH (11:30)
--- NOTE | 2023-08-05 11:56 | NUR ---
DIETARY: ORDER EXPEDITER IN TO SEE PATIENT TODAY. RECOMMENDATION FOR CENTRAL LINE PLACEMENT FOR CPN. HOSPITALIST NOT AGREEABLE AT THIS TIME. POWERGLIDE AND PERIPHERAL IV REMOVED AND TIPS SENT FOR CULTURE. NEW PIV PLACED. PPN ON HOLD AT THIS TIME. CONT ABX AND NEW ORDERS FOR FLUIDS RECIEVED.
[2023-08-05 12:16] VITALS: BP 138/94
[2023-08-05] MEDS ORDERED: Micafungin Sodium 100 MG in NS 100 ML IV SCH (14:00)
[2023-08-05 15:05] VITALS: BP 120/72
--- NOTE | 2023-08-05 18:35 | NUR ---
PT STABLE POST OP DAY #10. PT CONT TO BE NPO. WILLIAM SMALL AMT ICE CHIPS. NO NAUSEA. PT CONT TO HAVE FEVER AND INCREASED WBC COUNT. TYLENOL THIS SHIFT FOR SHAKING WITH FEVER. LINES REMOVED AND SENT FOR CULTURE. PPN ON HOLD AT THIS TIME. PT ON MAINTENENCE FLUIDS AND CONT ABX. ANTIFUNGAL ADDED TO REGIMINE THIS SHIFT. PT VERY WEAK. DID NOT WORK WELL WITH THERAPY. PT TOTAL ASSIST TO COMMODE FOR BM THIS EVENING. PT VOIDING WITH URINAL. MORPHINE EFFECTIVE FOR PAIN. AM LABS ORDERED. PT CALLS APPROPRIATELY NEEDED.
[2023-08-05 19:27] VITALS: BP 113/71
[2023-08-05 21:26] LABS: Vancomycin, Trough 19.1 ug/mL (5.0-10.0)
[2023-08-05] MEDS ORDERED: Vancomycin HCL 1,000 MG in NS 100 ML IV SCH (22:21)
[2023-08-06 04:37] VITALS: BP 128/78
[2023-08-06 05:09] LABS: Hematocrit 27.6 % (37.0-53.0); Hemoglobin 8.7 g/dL (13.5-17.5); Mean Corpuscular HGB 28.4 pg (26.0-34.0); Mean Corpuscular HGB Conc 31.5 g/dL (31.5-36.5); Mean Corpuscular Volume 90 fL (80-100); Mean Platelet Volume 11.8 fL (9.1-12.4); Platelet Count 265 K/mm3 (150-400); RDW Coefficient Variation 16.3 % (11.7-14.2); RDW Standard Deviation 53.9 fL (35.1-46.3); Red Blood Cell Count 3.06 M/mm3 (4.30-5.90); White Blood Cell Count 13.07 K/mm3 (4.00-11.30)
--- NOTE | 2023-08-06 05:29 | NUR ---
SHIFT SUMMARY POD 11 DUOD PERF REPAIR W/ PATCH PT RESTED T/O THE NIGHT. PAIN MANAGED PER EMAR. X5 LAP SITES CLOSED WITH WG, MEL DRAIN IN LLQ, 5ML OUTPUT GREEN DRAINAGE. PT HAD BM TONIGHT, PASSING GAS. VSS. NO OTHER CONCERNS AT THIS TIME, CALL LIGHT WITHIN REACH
[2023-08-06 05:42] LABS: Bun/Creatinine Ratio 20.9 (12.0-20.0); Calcium, Blood 8.7 mg/dL (8.5-10.1); Creatinine, Blood 0.86 mg/dL (0.60-1.20); Magnesium, Blood 1.9 mg/dL (1.6-2.4); Phosphorus, Blood 2.7 mg/dL (2.5-4.9); Potassium, Blood 3.8 mmol/L (3.5-5.5)
[2023-08-06 08:06] VITALS: BP 128/82
[2023-08-06 14:16] VITALS: BP 129/88
--- NOTE | 2023-08-06 16:46 | NUR ---
SHIFT SUMMARY POD 11 LAP DUODENAL PER REPAIR WITH FALCIFORM PATCH PT [id number], UP TO CHAIR FOR MOST OF SHIFT. PAIN CONTROLLED PER EMAR. CONTINUES TO HAVE LIQUID GREEN BOWEL MOVEMENTS. MINIMAL OUTPUT IN MEL DRAIN. TOLERATING ICE CHIPS. USING CALL LIGHT APPROPRIATLY.
[2023-08-06 19:16] VITALS: BP 157/89
[2023-08-06 21:50] LABS: Vancomycin, Trough 19.9 ug/mL (5.0-10.0)
[2023-08-06] MEDS ORDERED: Vancomycin HCL 750 MG in NS 100 ML IV SCH (23:00)
[2023-08-07 04:31] VITALS: BP 148/89
--- NOTE | 2023-08-07 07:12 | NUR ---
SHIFT SUMMARY NO ACUTE CHANGES NOTED THROUGH THE NIGHT, PT REMAINS A&O X4, ON RA, VSS, NPO W CHIPS, DENIES NAUSEA, LOOSE BM'S REPORTED. VOIDING, PAIN MNGD PER EMAR, RESTING QUIETLY AT THIS TIME, CALL LIGHT IN REACH, REPORT GIVEN TO KAM [place]OUGHBY.
[2023-08-07 08:00] VITALS: BP 145/82
[2023-08-07 16:16] VITALS: BP 153/83
--- NOTE | 2023-08-07 16:51 | NUR ---
SHIFT SUMMARY POD 12 PT PAIN WELL CONTROLLED PER EMAR. CONTINUES TO PASS GAS AND HAVE LIQUID BM. AFEBRILE TODAY. DRESSING REMAINS CDI. REMAINS NPO WITH SMALL AMOUNT OF ICE CHIPS. HAS MAINATINED A POSTIVE AFFECT TODAY AND IS HOPEFUL TO EVENTUALLY GO HOME. CALLING APPROPRIATLY.
[2023-08-07 20:03] VITALS: BP 156/83
[2023-08-08 03:58] VITALS: BP 161/82
[2023-08-08 04:06] LABS: Hematocrit 25.1 % (37.0-53.0); Hemoglobin 8.1 g/dL (13.5-17.5); Mean Corpuscular HGB 29.2 pg (26.0-34.0); Mean Corpuscular HGB Conc 32.3 g/dL (31.5-36.5); Mean Corpuscular Volume 91 fL (80-100); Mean Platelet Volume 10.8 fL (9.1-12.4); Platelet Count 387 K/mm3 (150-400); RDW Coefficient Variation 15.9 % (11.7-14.2); Red Blood Cell Count 2.77 M/mm3 (4.30-5.90); White Blood Cell Count 11.17 K/mm3 (4.00-11.30)
[2023-08-08 04:39] LABS: Bun/Creatinine Ratio 14.5 (12.0-20.0); Calcium, Blood 8.3 mg/dL (8.5-10.1); Creatinine, Blood 0.76 mg/dL (0.60-1.20); Magnesium, Blood 1.5 mg/dL (1.6-2.4); Phosphorus, Blood 2.5 mg/dL (2.5-4.9); Potassium, Blood 3.6 mmol/L (3.5-5.5)
--- NOTE | 2023-08-08 06:30 | NUR ---
SHIFT SUMMARY NO ACUTE CHANGES THROUGH THE NIGHT, REMAINS A&O X4, ON RA, SPIROMETER USE ENC, VSS, VOIDING WNL, PAIN MANAGED PER EMAR, NEW IV STARTED IN RFA BY DESK OPERATOR. LR/ABX INFUSING, RESTING QUIETLY IN BED THIS AM, CALL LIGHT IN REACH, WCTM & REPORT TO NEXT SHIFT
[2023-08-08 06:58] VITALS: BP 145/80
[2023-08-08] MEDS ORDERED: Mag Sulfate 1 GM/D5% 100ML 100 ML IV STA (07:40)
[2023-08-08 14:27] VITALS: BP 144/90
--- NOTE | 2023-08-08 16:21 | NUR ---
SUMMARY NO ACUTE CHANGES T/O SHIFT. PT VOIDING IN URINAL. SAT UP FOR SHORT TIME IN RECLINER. STOOD W/FWW AND TRANSFERRED W/O DIFFICULTY BACK TO BED. MEDICATED PER ORDERS DURING SHIFT FOR ABD AND BACK PAIN. DR ROBERTS IN THIS AFTERNOON. DC'D PROBIOTIC PER HER VERBAL ORDERS. DR ROBERTS ALSO STATED WE MAY START PT'S CELEXA PER ORDERS. TURNING OVER CARE TO FELIBERTO Cifuentes RN.
[2023-08-08 19:32] VITALS: BP 154/87
[2023-08-09 04:23] VITALS: BP 156/82
--- NOTE | 2023-08-09 06:20 | NUR ---
SHIFT SUMMARY AOx4. VSS. POD 13- LAP DUOD ULCER REPAIR W/PATCH. LAP SITES C/D/I. MEL TO LLQ ABD W/20ML GREEN DRAINAGE. REPORTS LOW ABD/BACK PAIN, MEDICATED W/IV MORPHINE & PT ABLE TO REST. HAD MULT VOIDS W/URINAL. + BLOOD CX, GRAM + IN COCCI, INFORMED DR CASE. CALL LIGHT IN REACH, WILL MONITOR.
[2023-08-09 07:03] VITALS: BP 145/73
[2023-08-09 13:53] VITALS: BP 142/94
--- NOTE | 2023-08-09 17:58 | NUR ---
SUMMARY NO ACUTE CHANGES T/O SHIFT. MEDICATED PT PER ORDERS FOR PAIN T/O DAY. REPORTS PAIN IMPROVES FROM 8/10 TO 6/10 AFTER MORPHINE PER ORDERS. PT WORKED WITH THERAPY AND AMBULATED OUT IN [place]. SAT UP IN CHAIR FOR APPROXIMATELY AN HOUR. PT HAD BM THIS AFTERNOON. MEL HAS SCANT AMOUNT GREEN DRAINAGE/NOT MEASURABLE AMOUNT. CALL LIGHT IN REACH.
[2023-08-09 19:21] VITALS: BP 163/86
[2023-08-10 03:32] VITALS: BP 164/87
--- NOTE | 2023-08-10 06:34 | NUR ---
SUMMARY- NO NEW ISSUES NOTED. PT SLEPT OFF AND ON. PT PAIN TX PER APR. PT MEL DRAIN HAD NO OUTPUT THIS SHIFT. PT RESTING COMFORTABLY THIS MORNING.
[2023-08-10 07:41] VITALS: BP 154/89
--- NOTE | 2023-08-10 07:43 | NUR ---
AM NOTE PT WAKES EASILY TO VERBAL STIMULI, ALERT, ORINETED X4; CALM AND COOPERATIVE WITH CARE. PT RESTING IN BED, UP WITH SBA. PT DENIES PAIN, CHEST PAIN/PRESSURE, SOB, NAUSEA, DIZZINESS AND NUMB/TINGLING. ABD SOFT, TENDER, WITH BT + T/O, HYPOATIVE; LAP SITES INTACT, MEL DRAIN DRAINING MINIMAL GREEN LIQUID; PT REPORTING BM AND FLATULENCE. SPO2 >90% ON RA, BREATHING EVEN AND UNLABORED. HTN NOTED. OTHER VSS. WILL CONTINUE TO MONITOR.
[2023-08-10 09:17] LABS: Hematocrit 27.2 % (37.0-53.0); Hemoglobin 8.7 g/dL (13.5-17.5); Mean Corpuscular HGB 28.5 pg (26.0-34.0); Mean Corpuscular Volume 89 fL (80-100); Mean Platelet Volume 10.4 fL (9.1-12.4); Platelet Count 517 K/mm3 (150-400); RDW Coefficient Variation 16.2 % (11.7-14.2); RDW Standard Deviation 52.4 fL (35.1-46.3); Red Blood Cell Count 3.05 M/mm3 (4.30-5.90)
[2023-08-10 09:39] LABS: Bun/Creatinine Ratio 6.7 (12.0-20.0); Calcium, Blood 8.5 mg/dL (8.5-10.1); Creatinine, Blood 0.74 mg/dL (0.60-1.20)
[2023-08-10] MEDS ORDERED: Potassium Chloride 20 MEQ TabCR PO ONE (10:50)
[2023-08-10 15:14] VITALS: BP 145/78
--- NOTE | 2023-08-10 18:51 | NUR ---
SHIFT SUMMARY 10CC OUT OF MEL DRAIN T/O SHIFT. PT UP WITH SBA TO BSC, MULTIPLE LIQUID BMS T/O SHIFT. VSS. NO OTHER ACUTE CHANGES NOTED. WILL CONTINUE TO MONITOR.
[2023-08-10 19:48] VITALS: BP 144/86
[2023-08-11 04:01] VITALS: BP 164/90
[2023-08-11 05:30] VITALS: BP 157/79
--- NOTE | 2023-08-11 06:41 | NUR ---
SHIFT SUMMARY NOC. PT A/O X4. PT'S LAP SITES C/D/I, MEL DRAIN PRODUCED 5ML OF YELLOW/GREEN OUTPUT. PT MEDICATED FOR PAIN X2 THIS SHIFT. PT VOIDING URINE AND TOLERATING DIET ORDERED. PT RESTED WITH EYES CLOSED AND CALL LIGHT IN REACH.
[2023-08-11 07:35] VITALS: BP 174/97
[2023-08-11 09:52] LABS: Bun/Creatinine Ratio 3.2 (12.0-20.0); Calcium, Blood 8.1 mg/dL (8.5-10.1); Creatinine, Blood 0.95 mg/dL (0.60-1.20); Potassium, Blood 2.9 mmol/L (3.5-5.5)
[2023-08-11 10:24] LABS: Creatinine, Blood 0.89 mg/dL (0.60-1.20); Vancomycin, Trough 18.5 ug/mL (5.0-10.0)
[2023-08-11] MEDS ORDERED: Potassium Chloride 10 Meq Tablet SA PO ONE (10:35)
[2023-08-11] MEDS ORDERED: Potassium Chloride 40 MEQ in NS 250 ML IV ONE (10:35)
[2023-08-11 11:34] VITALS: BP 157/90
[2023-08-11] MEDS ORDERED: OxyCODONE 5 mg/Acetamin 325 mg TABLET PO PRN (12:10)
[2023-08-11 15:15] VITALS: BP 136/79
[2023-08-11] MEDS ORDERED: Sod Ferric Gluc Complx/Sucrose 125 MG in NS 100 ML IV SCH (16:30)
[2023-08-11] MEDS ORDERED: Carvedilol 6.25 MG Tab PO SCH (17:00)
--- NOTE | 2023-08-11 17:14 | NUR ---
SHIFT SUMMARY NO ACUTE CHANGES THIS SHIFT. PT CONT TO REPORT FEELING BETTER. PT TOLERATING ORAL PAIN MEDICATION 2 PERCOCET PRN. WILLIAM CLEAR LIQ DIET. CONTINUES TO PASS FLATUS AND HAD X2 LIQ BMS TODAY. INCISIONS TO ABD REMAIN UNCHANGED AND APPEAR CDI. MINIMAL OUTPUT IN MEL DRAIN IF ANY. IV ABX PER ORDERS. VSS. POSSIBLE DC HOME TOMORROW OR NEXT DAY. PT USING CALL LIGHT APPROPRIATELY.
[2023-08-11 19:08] VITALS: BP 136/81
[2023-08-11] MEDS ORDERED: Atorvastatin 10 MG Tab PO SCH (21:00)
[2023-08-12 03:55] VITALS: BP 164/88
[2023-08-12 05:40] VITALS: BP 158/84
--- NOTE | 2023-08-12 06:00 | NUR ---
SHIFT SUMMARY NOC. PT A/O X4. LAP SITES ON ABDOMEN ARE C/D/I. PT MEDICATED FOR PAIN WITH REPORTED RELIEF OF SX. NEW IV PLACED IN RIGHT FOREARM. PT VOIDING AND TOLERATING ORAL PILLS. PT RESTED WITH EYES CLOSED AND CALL LIGHT IN REACH.
[2023-08-12 06:02] LABS: Albumin, Blood 1.4 g/dL (3.4-5.0); Anion Gap 8 mmol/L (3-11); Blood Urea Nitrogen 2 mg/dL (8-24); Bun/Creatinine Ratio 2.5 (12.0-20.0); CO2, Blood 26 mmol/L (21-32); Calcium, Blood 8.1 mg/dL (8.5-10.1); Chloride, Blood 111 mmol/L (98-108); Glomerular Filtration Rate 99 (60-); Glucose, Blood 101 mg/dL (70-99); Magnesium, Blood 1.1 mg/dL (1.6-2.4); Phosphorus, Blood 2.3 mg/dL (2.5-4.9); Potassium, Blood 3.1 mmol/L (3.5-5.5); Sodium, Blood 142 mmol/L (136-145)
--- NOTE | 2023-08-12 06:31 | NUR ---
CRITICAL LAB NOTIFICATION. SPOKE WITH DR. CASE REGARDING CRITICAL LAB VALUE FOR MAGNESIUM OF 1.1 AT 0629. PER PROVIDER WILL REVIEW CHART AND PLACE NEW ORDERS.
[2023-08-12] MEDS ORDERED: Magnesium Sulf 2 GM/Water 50ML 50 ML IV ONE (06:40)
[2023-08-12] MEDS ORDERED: Potassium Chloride 40 MEQ in NS 250 ML IV ONE (06:40)
[2023-08-12 07:43] VITALS: BP 157/91
[2023-08-12 09:00] VITALS: BP 132/81
[2023-08-12] MEDS ORDERED: AmLODIPine Besylate 5 MG Tab PO SCH (09:00)
[2023-08-12] MEDS ORDERED: Potassium Phos/Sodium Phos 250 MG PACK PO SCH (10:00)
[2023-08-12 14:27] VITALS: BP 139/82
[2023-08-12 19:27] VITALS: BP 150/92
[2023-08-12 22:28] LABS: Magnesium, Blood 1.5 mg/dL (1.6-2.4); Phosphorus, Blood 2.3 mg/dL (2.5-4.9); Potassium, Blood 3.8 mmol/L (3.5-5.5)
--- NOTE | 2023-08-13 04:43 | NUR ---
SHIFT SUMMARY PT IS A/O X4, SBA TO BSC. BM THIS SHIFT. USING URINAL INDEPENDENTLY. PT MEDICATED FOR PAIN W/ PO PAIN MEDS W/ TOLERABLE RESULTS. VSS. IV FLUIDS AND ABX RUNNING ORDERED. MINIMAL YELLOW/GREEN OUTPUT OUT OF MEL DRAIN. PT USING CALL LIGHT APPROPRIATELY.
[2023-08-13 05:54] VITALS: BP 155/101
[2023-08-13 06:24] LABS: Albumin, Blood 1.4 g/dL (3.4-5.0); Anion Gap 8 mmol/L (3-11); Blood Urea Nitrogen 2 mg/dL (8-24); Bun/Creatinine Ratio 2.4 (12.0-20.0); CO2, Blood 27 mmol/L (21-32); Calcium, Blood 8.4 mg/dL (8.5-10.1); Chloride, Blood 111 mmol/L (98-108); Creatinine, Blood 0.83 mg/dL (0.60-1.20); Glomerular Filtration Rate 98 (60-); Glucose, Blood 96 mg/dL (70-99); Magnesium, Blood 1.4 mg/dL (1.6-2.4); Phosphorus, Blood 2.3 mg/dL (2.5-4.9); Potassium, Blood 3.9 mmol/L (3.5-5.5); Sodium, Blood 142 mmol/L (136-145)
[2023-08-13 07:16] VITALS: BP 163/92
[2023-08-13] MEDS ORDERED: Percocet 5-3251 EACH PO (14:14)
[2023-08-13] MEDS ORDERED: DOCU100 PO (14:15)
[2023-08-13] MEDS ORDERED: SUCR1 PO (14:15)
[2023-08-13] MEDS ORDERED: PANT20 PO (14:16)
--- NOTE | 2023-08-13 16:12 | NUR ---
DISCHARGE SUMMARY PT A&OX4, VSS/RA, WILLIAM PO, VOIDING/URINAL, MULTI BMs/BSC, AMB SBA W/FWW IN ROOM AND IN HALLWAY, PAIN MANAGED, IV DC'D. DC INS PROVIDED. PT REP UNDERSTANDING THOSE INSTRUCTIONS INCLUDING HOW TO EMPTY MEL DRAIN/RECORD, OK TO SHOWER ONLY, FULL LIQUID DIET UNTIL FU APPT. LFT FLOOR VIA WC WITH NEGATIVE CUTTER TO GO HOME WITH WITH ALL PERSONAL POSSESSIONS INCLUDING DC PACKET AND 1 NARC SCRIPT; SCRIPTS FAXED TO [facility].
== END 2023-08-13 15:25 | disposition home or self-care (01) | DRG 853 ==
LOC: ER 10:31 → PCU 14:01 → SURS 14:01 → PCU 18:30 → SURS 07-27 17:47
PROVIDERS: Anesthesiology; Emergency Medicine; Internal Medicine; Nurse Practitioner Acute Care; Surgery; ADMIT Hospitalist
PROC: 8E0W4CZ Robotic Assisted Procedure of Trunk Region, Percutaneous Endoscopic Approach (ICD-10-PCS; 2023-07-26)
PROC: 0DH67UZ Insertion of Feeding Device into Stomach, Via Natural or Artificial Opening (ICD-10-PCS; 2023-07-26)
PROC: 3E0G76Z Introduction of Nutritional Substance into Upper GI, Via Natural or Artificial Opening (ICD-10-PCS; 2023-07-26)
PROC: 30233N1 Transfusion of Nonautologous Red Blood Cells into Peripheral Vein, Percutaneous Approach (ICD-10-PCS; 2023-07-26)
PROC: 3E03329 Introduction of Other Anti-infective into Peripheral Vein, Percutaneous Approach (ICD-10-PCS; 2023-07-26)
PROC: 0DQ60ZZ Repair Stomach, Open Approach (ICD-10-PCS; principal; 2023-07-26 14:30)
DX: A41.9 Sepsis, unspecified organism (principal); E43 Unspecified severe protein-calorie malnutrition; K26.5 Chronic or unspecified duodenal ulcer with perforation; K65.9 Peritonitis, unspecified; N15.1 Renal and perinephric abscess; J90 Pleural effusion, not elsewhere classified; N17.9 Acute kidney failure, unspecified; Z68.1 Body mass index [BMI] 19.9 or less, adult; R64 Cachexia; E83.42 Hypomagnesemia; E87.5 Hyperkalemia; F10.20 Alcohol dependence, uncomplicated; G43.909 Migraine, unspecified, not intractable, without status migrainosus; E87.6 Hypokalemia; E83.39 Other disorders of phosphorus metabolism; F41.8 Other specified anxiety disorders; I10 Essential (primary) hypertension; E78.5 Hyperlipidemia, unspecified; J44.9 Chronic obstructive pulmonary disease, unspecified; Z96.0 Presence of urogenital implants; Z90.49 Acquired absence of other specified parts of digestive tract; Z98.890 Other specified postprocedural states; Z88.8 Allergy status to other drugs, medicaments and biological substances; Z79.82 Long term (current) use of aspirin; Z79.899 Other long term (current) drug therapy; Z71.41 Alcohol abuse counseling and surveillance of alcoholic
CPT/HCPCS: 36415; 71045; 74177; 74240; 80048; 80053; 80069; 80202; 82565; 82947; 83735; 84100; 84132; 84478; 85025; 85027; 86850; 86900; 86901; 86923; 87040; 87070; 87077; 87186; 93005; 93010; 93308; 93321; 94762; 96361-59; 96365-59; 96375-59; 97110; 97116; 97162; 97165; 97530; 97535; 99285-25; A9270; C9113; J0360; J0612; J1170; J1650; J1815; J1885; J2248; J2270; J2405; J2543; J2704; J2916; J3010; J3370; J3411; J3475; J3480; J7030; J7050; J7060; J7120; J7131; P9016; Q9967

== ENCOUNTER → 2023-07-26 | Outpatient (CLI) | payer OTHER ==
[~2023-07-26] MED LIST changes: +DAILY-VITE1 EAC1 PO; +DOCU100 PO; +MAGNESIUM OXID500 MG PO; +PANT20 PO; +PHOSPHO-TRIN K500 MG PO; +Percocet 5-3251 EACH PO; +SUCR1 PO
[2023-07-26 09:08] LABS: Hematocrit 29.2 % (37.0-53.0); Hemoglobin 9.4 g/dL (13.5-17.5); Mean Corpuscular HGB 31.3 pg (26.0-34.0); Mean Corpuscular HGB Conc 32.2 g/dL (31.5-36.5); Mean Corpuscular Volume 97 fL (80-100); Mean Platelet Volume 9.6 fL (9.1-12.4); Platelet Count 584 K/mm3 (150-400); RDW Coefficient Variation 16.7 % (11.7-14.2); RDW Standard Deviation 59.8 fL (35.1-46.3); White Blood Cell Count 13.83 K/mm3 (4.00-11.30)
[2023-07-26 09:19] LABS: Albumin, Blood 1.9 g/dL (3.4-5.0); Albumin/Globulin Ratio 0.3 (0.8-1.8); Bilirubin, Total 2.1 mg/dL (0.1-1.0); Bun/Creatinine Ratio 8.1 (12.0-20.0); Calcium, Blood 10.6 mg/dL (8.5-10.1); Creatinine, Blood 2.72 mg/dL (0.60-1.20); Globulin, Blood 5.5 g/dL (2.2-4.0); Total Protein, Blood 7.4 g/dL (6.4-8.2)
[2023-07-26 09:20] LABS: Potassium, Blood 6.4 mmol/L (3.5-5.5)
[2023-07-26 09:39] LABS: BAND PERCENT MAN 41 % (0-8); BASOPHILS PERCENT MAN 0 % (0-2); EOSINOPHILS PERCENT MAN 0 % (0-6); LYMPHOCYTES ABSOLUTE MAN 1.52 K/mm3 (0.84-5.20); LYMPHOCYTES PERCENT MAN 11 % (21-46); MONOCYTES ABSOLUTE MAN 0.55 K/mm3 (0.16-1.47); MONOCYTES PERCENT MAN 4 % (4-13); NEUTROPHILS ABSOLUTE MAN 11.75 K/mm3 (1.96-9.15); SEG NEUTROPHILS PERCENT MAN 44 % (41-73); TOTAL CELLS COUNTED 100
== END ==
LOC: LAB 09:05 → LAB SHORT 09:05
PROVIDERS: Physician Assistant Medical
DX: R10.9 Unspecified abdominal pain (principal)
CPT/HCPCS: 80053; 85025